=== PATIENT | female | born 1995 | race African-American/Black ===

== ENCOUNTER 2020-06-22 14:27 | Outpatient (CLI) | payer OTHER, SELFPAY ==
--- NOTE | ~2020-06-22 | US_ITS ---
EXAMINATION: US OB follow up DATE: 06/22/2020 15:16 INDICATION: Amenorrhea. Dating of with unknown last menstrual period. TECHNIQUE: Real-time ultrasound of the pelvis was performed. The interpreting radiologist was not pre sent for the study. COMPARISON: None. FINDINGS: The uterus measures 11.2 x 1.9 x 10.5 cm. There is a single living fetus in transverse lie with head to maternal left. The placenta is anterior. 2.5 x 0.7 x 2.1 cm hypoechoic subchorionic hematoma choco g the right superior margin of the placenta. heart rate is 157 beats per minute (bpm). The amni otic fluid volume is subjectively normal. The left ovary measures 2.9 x 1.9 x 1.7 cm and contains a 1 .5 cm anechoic cyst/follicle. The right ovary is not visualized. The following biometric data were obtained: BPD: 2.8 cm -> 15 weeks 0 days Head circumference: 10.7 cm -> 15 weeks 1 days Abdominal circumference: 8.7 cm -> 15 weeks 0 days Femur length: 1.4 cm -> 14 weeks 2 days These measurements are concordant. Head circumference to abdominal circumference ratio: 1.23 (normal range 1.06-1.38). Estimated weight: 103 g (+/-) 15 g. or 4 oz. (+/-) 1 oz. IMPRESSION: 1. Single living fetus in transverse lie with heart rate of 157 bpm. 2. Gestational age by ultrasound of 14 weeks 6 day(s) +/- 7 day(s) with ultrasound estimated date of delivery (PARI) of 12/15/2020. Please correlate with clinical information or earlier ultrasounds for mo st accurate PARI. 3. Small subchorionic hematoma. Reviewed, dictated and finalized at location A. IMPRESSION: 1. Single living fetus in transverse lie with heart rate of 157 bpm. 2. Gestational age by ultrasound of 14 weeks 6 day(s) +/- 7 day(s) with ultraso und estimated date of delivery (PARI) of 12/15/2020. Please correlate with clinic al information or earlier ultrasounds for most accurate PARI. 3. Small subchorionic hematoma.
== END 2020-06-22 14:28 | disposition home or self-care (01) ==
LOC: ANHIMG 14:35
PROVIDERS: Visit Provider Student in an Organized Health Care Education/Training Program
DX: Z34.92 Encounter for supervision of normal pregnancy, unspecified, second trimester (principal); Z3A.14 14 weeks gestation of pregnancy
CPT/HCPCS: 76816

== ENCOUNTER 2020-07-06 11:21 | Outpatient (CLI) | payer OTHER, SELFPAY ==
[2020-07-06 11:45] LABS: Basophils Percent Auto 0.4 % (0.2-1.2); Eosinophils Absolute Auto 0.1 K/mm3 (0-0.3); Eosinophils Percent Auto 1.4 % (0-4.4); Hematocrit 34.6 % (37.0-47.0); Hemoglobin 11.3 g/dL (12.0-15.0); Immature Granulocyte Absolute 0.09 K/mm3 (0.00-0.031); Immature Granulocyte Percent A 0.9 % (0-0.5); Lymphocytes Absolute Auto 1.62 K/mm3 (0.9-3.2); Lymphocytes Percent Auto 16.9 % (18.3-44.2); Mean Corpuscular HGB Conc 32.7 g/dl (32-36); Mean Corpuscular Hemoglobin 28.8 pg (26-34); Mean Platelet Volume 10.5 fl (7.4-10.4); Monocytes Absolute Auto 0.7 K/mm3 (0.1-0.6); Monocytes Percent Auto 7.5 % (2.6-8.5); Neutrophils Percent Auto 72.9 % (45.5-73.1); Platelet Count Result 225 k/mm3 (150-375); Red Blood Count 3.93 M/mm3 (4.2-5.4); Red Cell Distribution Width 11.8 % (11.5-14.5); White Blood Count 9.6 K/mm3 (4.5-10.0)
[2020-07-06 11:51] LABS: Add Urine Microscopic? YES; Appearance Urine Clear (Clear); Bilirubin Urine Negative (Negative); Blood Urine Negative (Negative); Color Urine Yellow (Yellow); Glucose Urine UA 3+ mg/dL (Negative); Ketones Urine Negative (Negative); Leukocyte Esterase Ur Negative LEU/UL (NEGATIVE); Mucus Urine Few /lpf; Nitrate Urine Negative (Negative); Protein Urine 1+ mg/dL (Negative); RBC Urine 0-2 /hpf (0-2); Squamous Epithelial Cell Urine Occasional /hpf (Few); Transitional Epi Cells Urine Rare /hpf (None Seen); WBC Urine 0-3 /hpf (0-3)
[2020-07-06 12:00] LABS: Specific Grav Ur 1.032 (1.001-1.035)
[2020-07-06 12:38] LABS: HIV 1/2 Ab P24 Ag Result Negative (Negative)
[2020-07-06 12:46] LABS: Vitamin D 25 Hydroxy 45.8 ng/mL
[2020-07-06 13:00] LABS: Hepatitis B Surface Antigen Negative (Negative); Rubella IgG Antibody 77.4 IU/ML
[2020-07-06 13:16] LABS: Hepatitis C Virus Antibody Negative (Negative)
[2020-07-07 11:20] LABS: Rapid Plasma Reagin Non-Reactive (NonReactive)
[2020-07-11 14:05] LABS: Hematocrit 34.4 % (35.0-45.0); Hemoglobin 11.3 g/dL (11.7-15.5); MCH 28.7 pg (27.0-33.0); MCV 87.3 FL (80.0-100.0); RDW 12.2 % (11.0-15.0); Red Blood Cell Count 3.94 Mill/uL (3.80-5.10)
== END 2020-07-06 11:22 | disposition home or self-care (01) ==
PROVIDERS: PCP Student in an Organized Health Care Education/Training Program; Visit Provider Student in an Organized Health Care Education/Training Program
DX: Z34.90 Encounter for supervision of normal pregnancy, unspecified, unspecified trimester (principal)
CPT/HCPCS: 36415; 81001; 82306; 83021; 84443; 85025; 86592; 86703; 86762; 86787; 86803; 86850; 86900; 86901; 87086; 87088; 87340; G0432

== ENCOUNTER 2020-07-20 14:56 | Outpatient (CLI) | payer OTHER, SELFPAY ==
[2020-07-22 18:58] LABS: Amphetamines negative; Barbiturates negative; Benzodiazepines negative; Cocaine Metabolites negative; Marijuana Metabolites POSITIVE; PCP negative
== END 2020-07-20 14:57 | disposition home or self-care (01) ==
PROVIDERS: PCP Student in an Organized Health Care Education/Training Program; Visit Provider Student in an Organized Health Care Education/Training Program
DX: O99.320 Drug use complicating pregnancy, unspecified trimester (principal); Z3A.00 Weeks of gestation of pregnancy not specified
CPT/HCPCS: 80307

== ENCOUNTER 2020-09-01 11:49 | Outpatient (CLI) | payer OTHER, SELFPAY ==
[2020-09-01 13:29] LABS: Basophils Percent Auto 0.4 % (0.2-1.2); Eosinophils Absolute Auto 0.1 K/mm3 (0-0.3); Eosinophils Percent Auto 0.7 % (0-4.4); Hematocrit 32.1 % (37.0-47.0); Hemoglobin 10.3 g/dL (12.0-15.0); Immature Granulocyte Absolute 0.13 K/mm3 (0.00-0.031); Immature Granulocyte Percent A 1.3 % (0-0.5); Lymphocytes Absolute Auto 1.56 K/mm3 (0.9-3.2); Lymphocytes Percent Auto 16.2 % (18.3-44.2); Mean Corpuscular HGB Conc 32.1 g/dl (32-36); Mean Corpuscular Hemoglobin 27.8 pg (26-34); Mean Corpuscular Volume 86.8 fl (80-100); Mean Platelet Volume 10.6 fl (7.4-10.4); Monocytes Absolute Auto 0.8 K/mm3 (0.1-0.6); Monocytes Percent Auto 8.7 % (2.6-8.5); Neutrophils Percent Auto 72.7 % (45.5-73.1); Platelet Count Result 228 k/mm3 (150-375); Red Cell Distribution Width 12.4 % (11.5-14.5); White Blood Count 9.6 K/mm3 (4.5-10.0)
[2020-09-01 13:41] LABS: Glucose 1 Hour PP 50gm Dose 120 mg/dL
== END 2020-09-01 11:50 | disposition home or self-care (01) ==
PROVIDERS: PCP Student in an Organized Health Care Education/Training Program; Visit Provider Student in an Organized Health Care Education/Training Program
DX: Z34.82 Encounter for supervision of other normal pregnancy, second trimester (principal); Z3A.00 Weeks of gestation of pregnancy not specified
CPT/HCPCS: 36415; 82947; 85025

== ENCOUNTER 2020-10-26 10:32 | Outpatient (CLI) | payer OTHER, SELFPAY ==
[2020-10-26 11:07] LABS: Basophils Percent Auto 0.4 % (0.2-1.2); Eosinophils Absolute Auto 0.1 K/mm3 (0-0.3); Eosinophils Percent Auto 0.8 % (0-4.4); Hematocrit 36.4 % (37.0-47.0); Hemoglobin 11.3 g/dL (12.0-15.0); Immature Granulocyte Absolute 0.11 K/mm3 (0.00-0.031); Immature Granulocyte Percent A 1.1 % (0-0.5); Lymphocytes Absolute Auto 1.48 K/mm3 (0.9-3.2); Lymphocytes Percent Auto 14.6 % (18.3-44.2); Mean Corpuscular Hemoglobin 26.5 pg (26-34); Mean Corpuscular Volume 85.4 fl (80-100); Mean Platelet Volume 10.9 fl (7.4-10.4); Monocytes Absolute Auto 0.8 K/mm3 (0.1-0.6); Monocytes Percent Auto 8.3 % (2.6-8.5); Neutrophils Absolute Auto 7.6 K/mm3 (1.3-6.7); Neutrophils Percent Auto 74.8 % (45.5-73.1); Platelet Count Result 225 k/mm3 (150-375); Red Blood Count 4.26 M/mm3 (4.2-5.4); Red Cell Distribution Width 12.7 % (11.5-14.5); White Blood Count 10.1 K/mm3 (4.5-10.0)
[2020-10-26 11:59] LABS: HIV 1/2 Ab P24 Ag Result Negative (Negative)
[2020-10-27 08:50] LABS: Rapid Plasma Reagin Non-Reactive (NonReactive)
== END 2020-10-26 10:33 | disposition home or self-care (01) ==
PROVIDERS: PCP Student in an Organized Health Care Education/Training Program; Visit Provider Student in an Organized Health Care Education/Training Program
DX: Z34.83 Encounter for supervision of other normal pregnancy, third trimester (principal)
CPT/HCPCS: 36415; 85025; 86592; 86703; G0432

== ENCOUNTER 2020-12-05 12:09 | Outpatient (CLI) | payer OTHER, SELFPAY ==
[2020-12-05] VITALS (9 sets, daily range): BP systolic 111–123; BP diastolic 61–74; PULSE 75–97
[2020-12-05 12:36] LABS: Basophils Percent Auto 0.2 % (0.2-1.2); Eosinophils Absolute Auto 0.1 K/mm3 (0-0.3); Eosinophils Percent Auto 0.8 % (0-4.4); Hematocrit 39.9 % (37.0-47.0); Hemoglobin 12.5 g/dL (12.0-15.0); Immature Granulocyte Absolute 0.07 K/mm3 (0.00-0.031); Immature Granulocyte Percent A 0.8 % (0-0.5); Lymphocytes Absolute Auto 1.71 K/mm3 (0.9-3.2); Lymphocytes Percent Auto 19.6 % (18.3-44.2); Mean Corpuscular HGB Conc 31.3 g/dl (32-36); Mean Corpuscular Hemoglobin 26.9 pg (26-34); Mean Corpuscular Volume 85.8 fl (80-100); Mean Platelet Volume 11.3 fl (7.4-10.4); Monocytes Absolute Auto 0.8 K/mm3 (0.1-0.6); Monocytes Percent Auto 8.7 % (2.6-8.5); Neutrophils Absolute Auto 6.1 K/mm3 (1.3-6.7); Neutrophils Percent Auto 69.9 % (45.5-73.1); Platelet Count Result 212 k/mm3 (150-375); Red Blood Count 4.65 M/mm3 (4.2-5.4); Red Cell Distribution Width 13.9 % (11.5-14.5); White Blood Count 8.7 K/mm3 (4.5-10.0)
[2020-12-05 12:43] LABS: Creatinine Urine 70.2 mg/dL; Total Protein Urine Random 10 mg/dL; Ur Ttl Prot Creatinine Ratio 0.14 mg/mg (0-0.20)
[2020-12-05 12:44] LABS: Add Urine Microscopic? YES; Appearance Urine Cloudy (Clear); Bacteria Urine 2+ /hpf; Bilirubin Urine Negative (Negative); Blood Urine Negative (Negative); Color Urine Yellow (Yellow); Glucose Urine UA 1+ mg/dL (Negative); Ketones Urine Negative (Negative); Leukocyte Esterase Ur Negative LEU/UL (NEGATIVE); Mucus Urine Rare /lpf; Nitrate Urine Negative (Negative); Protein Urine 1+ mg/dL (Negative); RBC Urine 0-2 /hpf (0-2); Specific Grav Ur 1.014 (1.001-1.035); Squamous Epithelial Cell Urine Many /hpf (Few); Urobilinogen Urine Negative mg/dL (<2.0); WBC Urine 0-3 /hpf (0-3)
[2020-12-05 12:47] LABS: Alanine Aminotransferase 10 U/L (4-35); Albumin Level 3.6 g/dL (3.5-5.1); Alkaline Phosphatase 184 U/L (38-126); Anion Gap 8 mmol/L (8-16); Aspartate Amino Transferase 20 U/L (14-36); Bilirubin,Total 0.3 mg/dL (0.2-1.3); Blood Urea Nitrogen 7 mg/dL (7-17); Calcium 8.8 mg/dL (8.4-10.2); Carbon Dioxide 19 mmol/L (22-30); Chloride 108 mmol/L (98-107); Estimated Glomerular Filt Rate > 60; Glucose 96 mg/dL (65-105); Potassium 4.1 mmol/L (3.4-5.0); Sodium 135 mmol/L (137-145); Uric Acid 4.5 mg/dL (2.5-7.5)
--- NOTE | 2020-12-05 12:52 | PC.NURSE ---
1248- Spoke with Dr. Javed, reviewed BP's, labs, reactive NST. Orders to keep patient and continue to monitor BP's.
--- NOTE | 2020-12-05 13:58 | PC.NURSE ---
1345- Spoke with Dr. Javed, reviewed BP's. Will come down to see patient shortly.
--- NOTE | 2020-12-05 14:23 | PC.NURSE ---
1420- Dr. Javed at bedside discussing plan on care with patient. Orders to discharge to home. Induction scheduled for Friday12/08/20 at 0630.
== END 2020-12-05 14:23 ==
LOC: ANHOBOP 12:12 → ANHOBPP 12:15
PROVIDERS: Visit Provider Student in an Organized Health Care Education/Training Program
DX: O13.3 Gestational [pregnancy-induced] hypertension without significant proteinuria, third trimester (principal); Z3A.38 38 weeks gestation of pregnancy
CPT/HCPCS: 36415; 59025; 80053; 81001; 82570; 84156; 84550; 85025; 87086; 99199

== ENCOUNTER 2020-12-08 06:44 | Inpatient (IN) | payer OTHER, SELFPAY ==
[2020-12-08] VITALS (61 sets, daily range): BP systolic 79–137; BP diastolic 44–92; PULSE 66–128; RESP 18; TEMP 36.7–37.9; O2SAT 97–100
[2020-12-08] MEDS: LACTATED RINGERS 1,000 ML 125 ML IV CONT ×2 (07:32→09:21)
[2020-12-08] MEDS: OXYTOCIN 30 UNITS/NS 500 ML 30 UNITS/500 ML BAG IV CONT (07:32)
[2020-12-08 07:40] LABS: Basophils Percent Auto 0.3 % (0.2-1.2); Eosinophils Absolute Auto 0.1 K/mm3 (0-0.3); Eosinophils Percent Auto 0.8 % (0-4.4); Hematocrit 36.1 % (37.0-47.0); Hemoglobin 11.6 g/dL (12.0-15.0); Immature Granulocyte Absolute 0.06 K/mm3 (0.00-0.031); Immature Granulocyte Percent A 0.6 % (0-0.5); Lymphocytes Absolute Auto 2.27 K/mm3 (0.9-3.2); Lymphocytes Percent Auto 24.5 % (18.3-44.2); Mean Corpuscular HGB Conc 32.1 g/dl (32-36); Mean Corpuscular Hemoglobin 27.3 pg (26-34); Mean Corpuscular Volume 84.9 fl (80-100); Monocytes Absolute Auto 0.9 K/mm3 (0.1-0.6); Monocytes Percent Auto 9.7 % (2.6-8.5); Neutrophils Percent Auto 64.1 % (45.5-73.1); Platelet Count Result 219 k/mm3 (150-375); Red Blood Count 4.25 M/mm3 (4.2-5.4); Red Cell Distribution Width 13.9 % (11.5-14.5); White Blood Count 9.3 K/mm3 (4.5-10.0)
--- NOTE | 2020-12-08 07:51 | LDADM ---
This patient, Guillermo Varela, was admitted to Labor/Delivery/Recovery 109 on 12/08/20 at 06:44. Plans for labor, pain management and were discussed with patient. Patient/family oriented to hospital policies and general routines including ID bracelet, bed and alarms, visiting hours, pain management, procedures, bathroom and other care routines, personal items, smoking policy, room service/diet and guest tray routines, security routines, and visiting hours. Patient/Family are encouraged to report perceived risks to care and to ask questions if they do not understand what they are told or what they should do. See OBIX for further documentation.
--- NOTE | 2020-12-08 08:22 | PM.IMHP ---
H&P: HPI History of Present Illness Date/Time: 12/08/20 08:22 Patient is a 25-year-old with last menstrual period uncertain in February 2020. Patient is currently 39 weeks gestation with an PARI 12/15/20. She is dated by an ultrasound on 06/22/20 at 14 weeks gestation. Patient presents to L&D for scheduled elective induction of labor at term. Patient reports feeling well. Patient denies any contractions, leakage of fluid, or vaginal bleeding. Reports good movement. Chief Complaint: Induction of labor Review of Systems Review of Systems: All systems reviewed & are unremarkable except as noted in HPI and below Constitutional: Constitutional: Reports as per HPI, Reports no additional constitutional complaints, Denies chills, Denies fever(s), Denies headache(s) and Denies night sweats Eyes: Eyes: Reports as per HPI and Reports no additional eye complaints ENT: Reports system reviewed and no additional complaints, except as documented, Reports as per HPI, Reports Normal hearing present and Denies headache(s) Cardiovascular: Cardiovascular: Reports as per HPI, Reports no additional cardiovascular complaints, Denies chest pain and Denies dyspnea Respiratory: Respiratory: Reports as per HPI, Reports no additional respiratory complaints, Denies cough and Denies dyspnea Gastrointestinal: Gastrointestinal: Reports as per HPI, Reports no additional gastrointestinal complaints, Denies abdominal pain, Denies change in bowel habits, Denies change in stool character, Denies nausea and Denies vomiting Genitourinary: Genitourinary: Reports no additional female genitourinary complaints, Reports as per HPI, Denies abnormal vaginal bleeding, Denies genital lesions, Denies hot flashes, Denies dyspareunia, Denies pelvic pain, Denies sexual dysfunction, Denies urinary incontinence, Denies vaginal discharge, Denies vaginal dryness and Denies vaginal odor Musculoskeletal: Musculoskeletal: Reports no additional musculoskeletal complaints and Reports as per HPI Integumentary/Breasts: Skin/Breast: Reports system reviewed and no additional complaints, except as docu, Reports as per HPI, Denies breast pain and Denies nipple discharge Neurologic: Reports system reviewed and no additional complaints, except as documented, Reports as per HPI, Reports Normal hearing present and Denies headache(s) Psychiatric: Psychiatric: Reports no additional psychiatric complaints, Reports as per HPI, Denies anxiety and Denies depression Endocrine: Endocrine: Reports no additional endocrine complaints and Reports as per HPI Hematologic/Lymphatic: Hematologic/Lymphatic: Reports no additional hematologic/lymphatic complaints and Reports as per HPI Allergic/Immunologic: Allergic/Immunologic: Reports no additional allergic/immunologic complaints and Reports as per HPI PMFSH Past Medical History Medical History (Updated 12/08/20 @ 08:34 by Gunjan Javed MD) History of miscarriage Vaginal delivery Surgical History Surgical History (Updated 12/08/20 @ 08:32 by Gunjan Javed MD) History of incision and drainage marsupialization of Bartholin's gland Family History Family History Grandparent Family history of malignant neoplasm of breast in first degree relative Heart failure Social History Social History Smoking status: Never smoker Second hand tobacco smoke exposure: No Alcohol intake: never Substance use: current Substance use type: marijuana Spiritual care concerns: No Meds Home Medications and Allergies Home Medications Medication Instructions Recorded Confirmed Type prenat.vits,anali,cyl-[id number]-npdox 1 tablet PO DAILY 06/15/20 12/08/20 History Allergies Allergy/AdvReac Type Severity Reaction Status Date / Time No Known Allergies Allergy Verified 12/05/20 11:19 Vital Signs Vital Signs - 24 hr 12/08/20 07:15 12/08/20 07
--- NOTE | 2020-12-08 08:35 | WPDHPUPDATE1 ---
History and Physical Update Update Date/Time: 12/08/20 08:35 History and Physical has been reviewed, including an updated exam of the patient. There are NO changes in the patient's condition. Risks, benefits, and alternatives have been discussed and questions answered. Patient agrees to proceed with procedure.
--- NOTE | 2020-12-08 09:25 | WPDANESEPPF ---
Anes - Initial Pre Proc Eval Date/Time: 12/08/20 09:25 Surgeon: Gunjan Javed MD Pre Op Diagnosis: Induction of Labor Patient Data Age: 25 Gender: F Height: Weight: Last Vital Signs Temp 37.0 C 12/08/20 07:30 Pulse 88 12/08/20 09:24 BP 123/61 12/08/20 09:24 Pulse Ox 99 12/08/20 09:20 Allergies Allergy/AdvReac Type Severity Reaction Status Date / Time No Known Allergies Allergy Verified 12/05/20 11:19 Home Medications Medication Instructions Recorded Confirmed Type prenat.vits,anali,kan-chuc-lkrua 1 tablet PO DAILY 06/15/20 12/08/20 History Laboratory Tests 12/08/20 12/08/20 12/08/20 07:12 07:12 07:12 WBC 9.3 K/mm3 K/mm3 (4.5-10.0) RBC 4.25 M/mm3 M/mm3 (4.2-5.4) Hgb 11.6 g/dL L g/dL (12.0-15.0) Hct 36.1 % L % (37.0-47.0) MCV 84.9 fl fl (80-100) MCH 27.3 pg pg (26-34) MCHC 32.1 g/dl g/dl (32-36) RDW 13.9 % % (11.5-14.5) Plt Count 219 k/mm3 k/mm3 (150-375) MPV 12.0 fl H fl (7.4-10.4) Immature Gran % (Auto) 0.6 % H % (0-0.5) Neut % (Auto) 64.1 % % (45.5-73.1) Lymph % (Auto) 24.5 % % (18.3-44.2) [place]go % (Auto) 9.7 % H % (2.6-8.5) Eos % (Auto) 0.8 % % (0-4.4) Baso % (Auto) 0.3 % % (0.2-1.2) Lymph # (Auto) 2.27 K/mm3 K/mm3 (0.9-3.2) [place]go # (Auto) 0.9 K/mm3 H K/mm3 (0.1-0.6) Eos # (Auto) 0.1 K/mm3 K/mm3 (0-0.3) Baso # (Auto) 0.0 K/mm3 K/mm3 (0.0-0.1) Abs Immat Gran (auto) 0.06 K/mm3 H K/mm3 (0.00-0.031) Absolute Neuts (auto) 6.0 K/mm3 K/mm3 (1.3-6.7) Absolute Nucleated RBC 0.0 K/mm3 K/mm3 (0.0-0.012) Nucleated RBC % 0.0 % % (0.0-0.2) RPR Pending Blood Type O Positive Antibody Screen Negative Patient hx anesthesia problems: none Family hx anesthesia problems: none PMFSH Past Medical History Medical History History of miscarriage Vaginal delivery Surgical History Surgical History History of incision and drainage marsupialization of Bartholin's gland Family History Family History Grandparent Family history of malignant neoplasm of breast in first degree relative Heart failure Social History Social History Smoking status: Never smoker Second hand tobacco smoke exposure: No Alcohol intake: never Substance use: current Substance use type: marijuana Spiritual care concerns: No Anes - Eval Final PreProcedure Day of Procedure 12/08/20 09:25 Patient weight: overweight Heart: regular rate and rhythm Lungs: clear to auscultation Airway: Mallampati scale class II Neurological: alert and oriented Last oral intake: >/= 8 hours ASA classification: II Emergent: no Anesthetic plan: proceed Anesthesia type and monitoring: regional epidural and standard monitoring Informed Consent: The patient's anesthetic plan and its attendant risks and benefits were discussed with the patient/family/POA. Questions were solicited and answers provided to the satisfaction of the patient/family/POA.
[2020-12-08 09:32] LABS: Rapid Plasma Reagin Non-Reactive (NonReactive)
[2020-12-08 10:27] LABS: Amphetamine Screen Urine Negative (Negative); Barbiturate Screen Urine Negative (Negative); Benzodiazepines Screen Urine Negative (Negative); Cannabinoid Screen Urine Negative (Negative); Cocaine Screen Urine Negative (Negative); Methadone Screen Urine Negative (Negative); Opiate Screen Urine Negative (Negative); Phencyclidine Screen Urine Negative (Negative)
[2020-12-08] MEDS: OXYTOCIN 30 UNITS/NS 500 ML 30 UNITS/500 ML BAG 125 UNITS IV CONT (16:12)
--- NOTE | 2020-12-08 17:19 | PM.OBPRVD ---
OB - Delivery Note Procedure Delivery date: 12/08/20 Procedure: The patient is a 25-year-old now who presented to Labor and Delivery on the morning of 12/08/2020 at 39 weeks gestation for a scheduled elective induction of labor at term. Patient was admitted to Labor and Delivery. Initial cervical exam was approximately 3 cm dilated. Induction of labor was begun with Pitocin. Pitocin was slowly titrated. Artificial rupture membranes was performed at 8 o'clock a.m. Clear amniotic fluid was noted. Cervical exam at that time was approximately 3/50/-2. The Pitocin was continuously titrated. Patient became uncomfortable and requested an epidural for pain management which was placed without difficulty. Patient continued to make cervical change and was noted to be fully dilated at 3:01 p.m. Epidural had become less effective over time and patient was uncomfortable. She was encouraged to push. She was prepped and draped for delivery. At 3:25 p.m., patient delivered infant head atraumatically without difficulty in DEMETROI presentation. Occiput restituted to maternal right side. With subsequent push, the 's neck, shoulders, and rest of body were also delivered without difficulty. Terminal meconium was noted. The 's nose and mouth were suctioned with bulb suction. The infant was crying spontaneously and was placed on maternal abdomen where care was assumed by awaiting nursing staff. The spontaneously voided. Delayed cord clamping was performed for 60 seconds. The cord was clamped and cut. A segment of cord was collected for cord gases. Cord blood was also collected. The placenta was then delivered spontaneously and intact. Uterine fundus was noted to be firm with massage. On inspection, no lacerations were noted and perineum was intact. Estimated blood loss for entire delivery was 100 cc. The was a live born female infant, apgars 8 and 9, weighing 8 lb 7 oz. Both mother and baby doing well at end of delivery. events: Labor Induction Induction method: per pitocin protocol Delivery augmentation: rupture of membranes Delivery monitor: external FHT and external uterine Route of delivery: Laceration Description: None Specimen: No Quantitative Blood Loss (ml): 100 Anesthesia type: Epidural Disposition: floor Complications: No immediate complications Baby Date of : 12/08/20 Time of : 15:25 Weeks of gestation at delivery: 39 gender: Female Weight (pounds): 8 Weight (ounces): 7 presentation: vertex position: Right Occiput Anterior Placenta delivery description: Spontaneous cord vessel description: 3 Vessels and Delayed Cord Clamping (x60 seconds) score one minute: 8 score five minutes: 9
--- NOTE | 2020-12-08 17:45 | OBPPTRN ---
Patient transferred to post room # 284 via wheelchair. Support person present. Oriented to unit, room, information board, rooming in, admission packet and security measures. Patient verbalizes understanding.
[2020-12-09 05:47] LABS: Hematocrit 35.5 % (37.0-47.0); Hemoglobin 11.1 g/dL (12.0-15.0)
[2020-12-09 08:00] VITALS: BP 101/57; PULSE 81; RESP 16; TEMP 36.9; O2SAT 100
--- NOTE | 2020-12-09 08:07 | P.PNOB_ITS ---
OB - PN: Subj Subjective Date/time seen: 12/09/20 08:07 She is doing well. Baby is . No complaints. Patient comments: pain well controlled, tolerating diet and other (Decreasing lochia.) [place] baby status: doing well and nursing well OB - PN: Obj Data Labs CBC & Chem 7: 12/09/20 03:36 Labs: Laboratory Results - last 24 hr 12/08/20 12/08/20 12/08/20 07:12 07:12 07:12 Hgb Hct Urine Opiates Screen Negative Urine Methadone Screen Negative Ur Barbiturates Screen Negative Ur Phencyclidine Scrn Negative Ur Amphetamine Screen Negative U Benzodiazepines Scrn Negative Urine Cocaine Screen Negative U Cannabinoids Screen Negative RPR Non-reactive Blood Type O Positive Antibody Screen Negative 12/09/20 03:36 Hgb 11.1 L Hct 35.5 L Urine Opiates Screen Urine Methadone Screen Ur Barbiturates Screen Ur Phencyclidine Scrn Ur Amphetamine Screen U Benzodiazepines Scrn Urine Cocaine Screen U Cannabinoids Screen RPR Blood Type Antibody Screen OB - PN A/P Plan day: 1 Plan: routine care Comments: Patient doing well. She request discharge today. Will discharge home today. Discussed discharge precautions. Time Spent With Patient Time: Total time spent is greater than 50% in coordination of care (as long lynch) at patient's floor/unit and/or counseling patient: Exam Const: General: comfortable Eyes: General: appearance normal, both eyes and all related structures Resp: Effort & Inspection: normal respiratory effort GI: Inspection: normal to inspection Other: soft nontender, fundus -3umb, firm Psych: Affect: normal affect Other: Abd: fundus firm below umbilicus, nontender Perineum: healing Ext: nontender
--- NOTE | 2020-12-09 08:11 | P.DS_ITS ---
DS: Admitting Diagnosis Admitting Diagnosis Admitting Diagnosis: Medical induction of labor DS: Discharge Diagnosis Discharge Diagnosis (1) Delivery normal: Code(s): O80 - Encounter for full-term uncomplicated delivery Status: Acute OB - DS: Summary OB Procedures : Ultrasound OB Procedures Intrapartum: Spontaneous Vag Delivery OB Procedures: : None Peripartum Data Delivery Method: Natural Vaginal complications: none Status at Discharge Functional status at discharge: independent ambulation Time Spent with Patient Time attestation: Total time spent providing and/or coordinating discharge services: Exam Const: General: cooperative and comfortable Eyes: General: appearance normal, both eyes and all related structures Resp: Effort & Inspection: normal respiratory effort GI: Inspection: normal to inspection Other: fundus firm nontender -3umb Extrem: General: normal to inspection Other: nontender Psych: Mental Status: mental status grossly normal DS: Data Data Completed and Pending Labs on day of discharge: Labs from last 24 hours 12/09/20 12/08/20 12/08/20 03:36 07:12 07:12 Hgb 11.1 L Hct 35.5 L Urine Opiates Screen Negative Urine Methadone Screen Negative Ur Barbiturates Screen Negative Ur Phencyclidine Scrn Negative Ur Amphetamine Screen Negative U Benzodiazepines Scrn Negative Urine Cocaine Screen Negative U Cannabinoids Screen Negative RPR Blood Type O Positive Antibody Screen Negative 12/08/20 07:12 Hgb Hct Urine Opiates Screen Urine Methadone Screen Ur Barbiturates Screen Ur Phencyclidine Scrn Ur Amphetamine Screen U Benzodiazepines Scrn Urine Cocaine Screen U Cannabinoids Screen RPR Non-reactive Blood Type Antibody Screen Discharge Plan Discharge Attending physician on discharge: Gunjan Javed Consulting providers: Saurabh Alicia Discharging Clinician: Raymon Garcia Anticipated Discharge Date/Time: 12/09/20 16:00 Patient Disposition: Home, Self-Care Activity: may shower, pelvic rest and other - see discharge instructions Diet: regular Discharge Instructions: Pelvic rest for four to six weeks. No heavy lifting. Call for temperature > 100.4, saturating more than a pad an hour, leg pain, redness. May take over the counter Ibuprofen or Tylenol for pain. Patient Instructions: Antibiotic Form Stand Alone Forms: General Discharge Information Follow-up/Referrals: Gunjan Javed MD [Physician] - Call for Appointment (4-6 week appointment) Discharge Medications: Continued prenat.vits,anali,gpx-bxbh-dtfym Tablet 1 tablet PO DAILY RF: 0 Date of admission: 12/08/20 06:44 Primary Care Provider: PHYSICIAN,[employer] SUPERVISOR Admitting Provider: Gunjan Javed Attending physician on admission: Gunjan Javed Condition: Stable
--- NOTE | 2020-12-09 08:58 | WPDANLDPN2 ---
Anes-Prog Note L&D Date/Time: 12/09/20 08:58 Comfortable throughout: labor and delivery Neuraxial method: epidural Epidural/Spinal procedure site: clean & non-tender Neuro status: Neuro function grossly intact. Cardiovascular status: normal Respiratory status: normal Airway patency: baseline Mental status: baseline Post-Op hydration status: normal Vital Signs: Last Vital Signs Temp 36.9 C 12/09/20 08:00 Pulse 81 12/09/20 08:00 Resp 16 12/09/20 08:00 BP 101/57 L 12/09/20 08:00 Pulse Ox 100 12/09/20 08:00 Pain score (VAS): 0 I/O: Intake & Output 12/08/20 12/09/20 12/09/20 23:59 07:59 15:59 Intake Total 1500 Output Total 108 Balance 1392 Post-procedural complaints: none Patient feedback: Patient satisfied with anesthetic care.
--- NOTE | 2020-12-09 09:51 | PC.NURSE ---
Patient was given the opportunity to view the discharge video Mother & Baby Care, The First Two Weeks and to ask questions. Patient declined viewing the video and has been given the mother/baby guide for home reference.
[2020-12-09] MEDS: TETANUS,DIPHTHERIA,AC PERTUSSIS ADULT (0.5 ML) BOOSTRIX IM (09:57)
[2020-12-09] MEDS: MULTIVIT/MIN/PREN/FOL AC/IRON TABLET 1 TAB PO (09:58)
[2020-12-09 12:06] VITALS: PULSE 79; RESP 16; O2SAT 100
[2020-12-09 17:05] VITALS: BP 120/68; PULSE 80; RESP 16; O2SAT 100
[2020-12-11 10:27] VITALS: BP 113/70; PULSE 100; RESP 20; TEMP 37.1; O2SAT 100
== END 2020-12-09 17:33 | disposition home or self-care (01) | DRG 560 ==
LOC: ANHOB2 12-09 08:19 → ANHLDR 12-12 09:29 → ANHOB2 12-12 09:29
PROVIDERS: Admitting Provider Student in an Organized Health Care Education/Training Program; Visit Provider Obstetrics & Gynecology
DX: O80 Encounter for full-term uncomplicated delivery (principal); Z37.0 Single live birth; Z3A.39 39 weeks gestation of pregnancy
CPT/HCPCS: 36415; 80307; 85014; 85018; 85025; 86592; 86850; 86900; 86901; 90715; A9270; J2590; J2795; J7120

== ENCOUNTER 2021-06-13 18:40 | Emergency (ER) | payer OTHER, SELFPAY ==
[2021-06-13 18:46] VITALS: BP 115/75; PULSE 92; RESP 16; TEMP 36.7; O2SAT 100
[2021-06-13 18:48] VITALS: BP 115/75; PULSE 92; RESP 16; TEMP 36.7; O2SAT 100
--- NOTE | 2021-06-13 18:52 | ED.GENADULT ---
HPI - General Adult General Chief complaint: Nausea/Vomiting/Diarrhea Stated complaint: VOMITING/DIARRHEA Source: patient Mode of arrival: ambulatory Limitations: no limitations History of Present Illness HPI narrative: Patient is a 25-year-old -[place] female who presents to the us care via POV for evaluation of nausea, vomiting, and diarrhea that has been present for approximately 1 week. She is accompanied by her mother. Additionally, she reports vomiting, nausea, and diarrhea have been intermittent. She states she has vomited once which contained yellow liquid and undigested food. She is having approximately 3 brown/yellow watery stools per day. Denies taking OTC meds for symptoms. Nothing improves or worsen symptoms. She states her daughter was ill with similar signs and symptoms approximately 1-1/2 weeks ago. She is fully vaccinated against Covid. Related Data Allergies Allergy/AdvReac Type Severity Reaction Status Date / Time No Known Allergies Allergy Verified 01/12/21 13:29 Review of Systems Review of Systems: Denies past abdominal medical history. Pertinent negatives fever, chills, sweats, malaise, poor p.o. intake, change in appetite, recent weight loss, lymphadenopathy, headache, sore throat, dizziness, LOC, urinary sxs, back/flank pain, extremity paresthesias, blood in stool, abdominal audrey, constipation, belching, bloating, dry mouth, heartburn, jaundice, vomiting blood, and testicular pain. PMFSH Past Medical History Medical History (Updated 06/13/21 @ 19:06 by SUZETTE Mcleod, BC) Delivery normal History of miscarriage Vaginal delivery Surgical History Surgical History (Updated 06/13/21 @ 19:02 by SUZETTE Mcleod, BC) History of incision and drainage marsupialization of Bartholin's gland Family History Family History Grandparent Family history of malignant neoplasm of breast in first degree relative Heart failure Social History Social History Smoking status: Never smoker Second hand tobacco smoke exposure: No Alcohol intake: never Substance use: current Substance use type: marijuana Spiritual care concerns: No Exam Narrative: GENERAL: Well-appearing, well-nourished, and in no acute distress. HEAD: Normocephalic, atraumatic. NECK: Supple. No lymphadenopathy or nuchal rigidity. CHEST: Lung sounds are clear to auscultation in bilateral lung weldon. No respiratory distress. HEART: Regular rate and rhythm. No murmur, gallop, or rub heard. ABDOMEN: Soft, non-tender, non-distended, hyperactive active bowel sounds are present in all quadrants. No guarding. No rebound tenderness. No pulsatile or palpable abdominal mass(es). No CVAT : Bladder non-distended, non-tender EXTREMITIES: Normal range of motion. No edema. SKIN: Warm, dry, no rash. No skin color changes. Excellent turgor. NEURO: No focal deficits. Alert and oriented x3. SPECIAL OBSERVATIONS: Smiling. Laughing. No evidence of discomfort. Course Vital Signs Vital signs: Vital Signs Temperature 98.1 F 06/13/21 18:46 Pulse Rate 92 06/13/21 18:46 Respiratory Rate 16 06/13/21 18:46 Blood Pressure 115/75 06/13/21 18:46 Pulse Oximetry 100 06/13/21 18:46 Temperature 98.1 F 06/13/21 18:48 Pulse Rate 92 06/13/21 18:48 Respiratory Rate 16 06/13/21 18:48 Blood Pressure 115/75 06/13/21 18:48 Pulse Oximetry 100 06/13/21 18:48 Reviewed. Medical Decision Making Differential Diagnosis Differential Diagnosis: Gastroenteritis, IBS, Crohn's disease Medical Records Medical records reviewed: Yes I reviewed the external patient's medical records. Vital Signs Vital Signs: Vital Signs Temperature 98.1 F 06/13/21 18:46 Pulse Rate 92 06/13/21 18:46 Respiratory Rate 16 06/13/21 18:46 Blood Pressure 115/75 06/13/21 18:46 Pulse Oximetry 100 06/13/21 18
== END 2021-06-13 19:16 | disposition home or self-care (01) ==
PROVIDERS: Emergency Provider Nurse Practitioner Family; PCP Student in an Organized Health Care Education/Training Program
DX: R11.2 Nausea with vomiting, unspecified (principal); R19.7 Diarrhea, unspecified
CPT/HCPCS: 99213; G0463

== ENCOUNTER 2021-08-13 10:02 | Emergency (ER) | payer OTHER, SELFPAY ==
[2021-08-13 10:23] VITALS: BP 115/70; PULSE 92; RESP 16; TEMP 36.7; O2SAT 100
--- NOTE | 2021-08-13 10:36 | ED.FEMALEGU ---
HPI - Female Genitourinary General Chief complaint: Urogenital-Female Stated complaint: Female Urogenital Time Seen by Provider: 08/13/21 10:36 Source: patient Mode of arrival: ambulatory Limitations: no limitations History of Present Illness HPI Narrative: Guillermo Varela is a 26 yo female with no PM H who comes to [facility] with complaints of Edilberto tract infection that started yesterday. She states that she is urinating more frequently and has pain at the end of urination. She states she has had urinary tract infections before-no fever, no nausea vomiting or diarrhea, no back pain Related Data Allergies Allergy/AdvReac Type Severity Reaction Status Date / Time No Known Allergies Allergy Verified 06/19/21 09:02 Review of Systems Review of Systems: CONSTITUTIONAL: Denies fever, chills, sweats. EYES: Denies visual changes, redness, discharge. ENT: Denies rhinorrhea, congestion, sore throat, otalgia. CARDIOVASCULAR: Denies chest pain, palpitations, edema. RESPIRATORY: Denies dyspnea, wheezing, cough GASTROINTESTINAL: Denies abdominal pain, nausea, vomiting, diarrhea. GENITOURINARY: Has dysuria, hematuria, abnormal discharge SKIN: Denies rash or itching. NEUROLOGIC: Denies numbness, or focal weakness. PSYCHIATRIC: Denies anxiety or depression. PMFSH Past Medical History Medical History Delivery normal History of miscarriage Vaginal delivery Surgical History Surgical History History of incision and drainage marsupialization of Bartholin's gland Family History Family History Grandparent Family history of malignant neoplasm of breast in first degree relative Heart failure Social History Social History Smoking status: Never smoker Second hand tobacco smoke exposure: No Alcohol intake: never Substance use: current Substance use type: marijuana Spiritual care concerns: No Comments At time of signature, I agree with nursing past medical, surgical, social and family history. There is no relevant family history pertinent to the presenting complaint. Exam Narrative: GENERAL: This is a well-nourished, well-developed patient, in mild distress. HEAD: normocephalic, atraumatic. EYES: PERRL. Sclera clear/white. Vision is grossly intact. EARS: External ears normal, . Hearing grossly intact. NOSE: External nose normal without nasal discharge, nares without redness, no rhinorrhea. THROAT: Mucous membranes moist NECK: Neck supple, CARDIOVASCULAR: Regular rate and rhythm without murmurs, gallops, or rubs. RESPIRATORY: Clear to auscultation. Breath sounds equal bilaterally. No wheezes, rales, or rhonchi. GASTROINTESTINAL: Abdomen soft, no tenderness SKIN: warm, intact with no suspicious lesions or rash, good texture and turgor. NEURO: awake, alert, and oriented to person, place and time. There were no obvious focal neurologic abnormalities. Steady gait EXTREMITIES: Normal range of motion. BACK: Nontender without deformity Course Course Emergency Course: Patient here for urinary frequency and pain when urinating that started yesterday UA shows positive blood 1+ leukocytes Started on cephalexin, discussed pushing fluids and good prevention practices Vital Signs Vital signs: Vital Signs Temperature 98.1 F 08/13/21 10:23 Pulse Rate 92 08/13/21 10:23 Respiratory Rate 16 08/13/21 10:23 Blood Pressure 115/70 08/13/21 10:23 Pulse Oximetry 100 08/13/21 10:23 Temperature 98.1 F 08/13/21 10:23 Pulse Rate 92 08/13/21 10:23 Respiratory Rate 16 08/13/21 10:23 Blood Pressure 115/70 08/13/21 10:23 Pulse Oximetry 100 08/13/21 10:23 MDM - Female Genitourinary Differential Diagnosis Differential diagnosis: Likely urinary tract infection, cystitis and other
== END 2021-08-13 10:48 | disposition home or self-care (01) ==
PROVIDERS: Emergency Provider Nurse Practitioner; PCP Student in an Organized Health Care Education/Training Program
DX: N30.01 Acute cystitis with hematuria (principal)
CPT/HCPCS: 81003; 87077; 87086; 87088; 87186; 99213; G0463

== ENCOUNTER 2023-03-21 19:36 | Emergency (ER) | payer OTHER, SELFPAY ==
--- NOTE | 2023-03-21 19:37 | ED.URI ---
HPI - URI/Sore Throat General Chief Complaint: Upper Respiratory Infection Stated Complaint: ear pain/sore throat Time Seen by Provider: 03/21/23 19:37 Source: patient Mode of arrival: ambulatory Limitations: no limitations History of Present Illness HPI Narrative: Guillermo is a 27-year-old female patient presenting to the clinic today with complaints of ear pain and sore throat times 2-3 days. She reports has had some nasal congestion, chills, and body aches as well. No known fever. No known exposure to anyone with COVID, flu, or strep. MD elicited complaint: sore throat, nasal congestion and other (Ear pain) Related Data Allergies Allergy/AdvReac Type Severity Reaction Status Date / Time No Known Allergies Allergy Verified 03/21/23 19:41 Review of Systems Review of Systems: Pertinent positives per HPI. Patient denies any fever, rash, headache, visual changes, dizziness, cough, shortness of breath, chest pain, palpitations, nausea, vomiting, diarrhea, constipation, abdominal pain, or any urinary issues. PMFSH Past Medical History Medical History Delivery normal History of herpes genitalis History of miscarriage PCOS (polycystic ovarian syndrome) Vaginal delivery Surgical History Surgical History History of incision and drainage marsupialization of Bartholin's gland Family History Family History Grandparent Family history of malignant neoplasm of breast in first degree relative Heart failure Social History Social History Smoking status: Never smoker Second hand tobacco smoke exposure: No Alcohol intake: never Substance use: current Substance use type: marijuana Spiritual care concerns: No Comments At the time of my signature, I reviewed and agree with the nursing past medical, surgical, social, and family history. There is no relevant family history pertinent to the patient complaint. Exam Narrative: General: Well-developed, well nourished, in no apparent distress Head: Normocephalic, atraumatic Eyes: Pupils equally round and reactive to light bilaterally, EOM intact, sclera and conjunctive clear, no discharge, lids normal Ears: TMs intact and clear, ear canals clear, no drainage, grossly hearing normal. Nose: Nares patent, no discharge, no inflammation, no sinus tenderness. Mouth: Oral pharynx red with bilateral tonsil enlargement without lesions or masses, good dentition, MMM. Neck: Supple, trachea midline, enlargement of anterior cervical nodes, no thyroid masses or goiter palpable. Cardio: Regular rate and rhythm, s1 and s2 normal, no murmur appreciated. Resp: Clear to auscultation bilaterally, no rhonchi, rales, wheezing or rubs Course Course Emergency Course: Portions of this record may have been created with voice recognition software. Level of Care: Express Care Visit Vital Signs Vital signs: Vital signs reviewed MDM - URI/Sore Throat MDM Narrative Medical decision making narrative: At the time of visit patient is resting comfortably on exam table. Strep screen was obtained and was positive in the clinic today. Prescription for amoxicillin was sent to the pharmacy and supportive measures were discussed with the patient she voiced understanding discharge instructions and agrees to treatment plan Differential Diagnosis Differential diagnosis: Likely upper respiratory infection, otitis media, sinusitis, viral infection, bronchitis, influenza, pharyngitis and other (COVID) Discharge Plan Discharge Clinical Impression: Acute streptococcal pharyngitis Patient Disposition: Home, Self-Care Condition: Stable Instructions: Antibiotic Form, Strep Throat (ED) Additional Instructions: Strep screen was positive in th
[2023-03-21 19:43] VITALS: BP 104/67; PULSE 108; RESP 16; TEMP 37.7; O2SAT 100
== END 2023-03-21 19:56 | disposition home or self-care (01) ==
PROVIDERS: Emergency Provider Nurse Practitioner Family; PCP Student in an Organized Health Care Education/Training Program
DX: J02.0 Streptococcal pharyngitis (principal)
CPT/HCPCS: 87880; 99213; G0463

== ENCOUNTER 2024-05-11 17:59 | Emergency (ER) | payer OTHER, SELFPAY ==
--- NOTE | 2024-05-11 18:15 | ED.FEMALEGU ---
HPI - Female Genitourinary General Chief complaint: Urogenital-Female Stated complaint: UTI SYMPTOMS Source: patient and RN notes reviewed Mode of arrival: ambulatory Limitations: no limitations History of Present Illness HPI Narrative: Patient is a 28-year-old female who presents to the [facility] with complaints of dysuria starting this morning. Patient also endorses urinary frequency and urgency. She states that her symptoms are similar to those she has experienced in the past with prior UTIs. She denies hematuria, flank pain, pelvic pain. Denies vaginal discharge. Related Data Home Medications Medication Instructions Recorded Confirmed O+ .Route 08/26/23 PMS .Route 08/26/23 ovarian support .Route 08/26/23 Allergies Allergy/AdvReac Type Severity Reaction Status Date / Time No Known Allergies Allergy Verified 08/26/23 08:16 Review of Systems Review of Systems: CONSTITUTIONAL: Denies fever, chills, or sweats. EYES: Denies visual changes, redness, or discharge. ENT: Denies otalgia and sore throat CARDIOVASCULAR: Denies chest pain, palpitations, or edema. RESPIRATORY: Denies cough or dyspnea. GASTROINTESTINAL: Denies abdominal pain, nausea, vomiting, or diarrhea. GENITOURINARY: Reports dysuria, urinary frequency, urinary urgency. SKIN: Denies rash or itching. MUSCULOSKELETAL: Denies back pain, joint pain, or myalgia. NEUROLOGIC: Denies headache, numbness, or weakness. Pertinent positives per HPI. [facility] Past Medical History Medical History Delivery normal History of herpes genitalis History of miscarriage PCOS (polycystic ovarian syndrome) Vaginal delivery Surgical History Surgical History History of incision and drainage marsupialization of Bartholin's gland Family History Family History Grandparent Family history of malignant neoplasm of breast in first degree relative Heart failure Social History Social History Smoking status: Never smoker Second hand tobacco smoke exposure: No Alcohol intake: never Substance use: current Substance use type: marijuana Lack of Transportation: No Lack of Food: Never True Current Housing: I Have Housing Concerned About Future Housing: No Difficulty Paying Gas/Electric Bills: No Difficulty Paying for Meds: No Currently Unemployed: No Difficulty w/ Childcare or Family Care: No Spiritual care concerns: No Comments At the time of my signature, I reviewed and agree with the nursing past medical, surgical, social, and family history. There is no relevant family history pertinent to the patient complaint. Exam Narrative: GENERAL: This is a well-nourished, well-developed patient, in no apparent distress. HEAD: normocephalic, atraumatic. EYES: PERRL. Sclera clear/white. Vision is grossly intact. EARS: External ears normal, auditory canals clear and without drainage, TMs normal without perforation. Hearing grossly intact. NOSE: External nose normal with no obvious nasal discharge, nares without redness, no rhinorrhea. THROAT: Mucous membranes moist, posterior pharynx clear. NECK: Neck supple, non-tender without lymphadenopathy, masses or thyromegaly. CARDIOVASCULAR: Regular rate and rhythm without murmurs, gallops, or rubs. RESPIRATORY: Clear to auscultation. Breath sounds equal bilaterally. No wheezes, rales, or rhonchi. GASTROINTESTINAL: Abdomen soft, non-tender, nondistended. Bowel sounds are active. No hepato-splenomegaly, or palpable masses. No guarding. SKIN: warm, intact with no suspicious lesions or rash, good texture and turgor. NEURO: awake, alert, and oriented to person, place and time. There were no obvious focal neurologic abnormalities. EXTREMITIES: No clubbing, cyanosis, or edema. No joint
[2024-05-11 18:26] VITALS: BP 103/71; PULSE 75; RESP 16; TEMP 36.8; O2SAT 100
[2024-05-11 18:41] LABS: EDUAAPPEAR Cloudy; EDUABILI Negative; EDUABLOOD Negative; EDUACOLOR1 Light/Pale; EDUAGLUCOSE Negative; EDUAKETONE Negative; EDUALEUKO 1+; EDUANITRATE Negative; EDUAPH 8.5; EDUAPROTEIN Trace; EDUASPGRAVITY 1.015
== END 2024-05-11 18:41 | disposition home or self-care (01) ==
PROVIDERS: Emergency Provider Nurse Practitioner
DX: N30.00 Acute cystitis without hematuria (principal); F12.90 Cannabis use, unspecified, uncomplicated; E28.2 Polycystic ovarian syndrome
CPT/HCPCS: 81003; 87077; 87086; 87088; 99213; G0463

== ENCOUNTER 2024-10-19 15:23 | Outpatient (CLI) | payer OTHER, SELFPAY ==
--- NOTE | ~2024-10-19 | US_ITS ---
EXAMINATION: US OB <= 14 weeks fetus DATE: 10/19/2024 15:40 INDICATION: Amenorrhea, unspecified. TECHNIQUE: Real-time transabdominal pelvic ultrasound was performed. COMPARISON: None. FINDINGS: The uterus measures 10.9 x 7.8 x 6.2 cm. There is an intrauterine gestational sac. The crown ru mp length measures 4.1 cm, which correlates with an estimated gestational age of 11 weeks and 0 day(s ) (+/-) 1 week(s) and 0 day(s). heart motion is identified measuring 171 beats per minute (bpm) by M-mode Doppler. There is a small subchorionic hematoma. The ovaries are not visualized. There is no ascites. IMPRESSION: 1. Single living intrauterine gestation with estimated date of delivery of 05/10/2025. 2. Small subchorionic hematoma. Reviewed, dictated and finalized at location A. BULATORY SERVICES REPRESENTATIVE IMPRESSION: 1. Single living intrauterine gestation with estimated date of delivery of 04/22. 2. Small subchorionic hematoma.
== END 2024-10-19 15:24 | disposition home or self-care (01) ==
LOC: GOSHIMG 15:23
PROVIDERS: PCP Nurse Practitioner Obstetrics & Gynecology; Visit Provider Nurse Practitioner Obstetrics & Gynecology
DX: N91.2 Amenorrhea, unspecified (principal)
CPT/HCPCS: 76801

== ENCOUNTER 2024-12-10 09:18 | Outpatient (CLI) | payer OTHER, SELFPAY ==
[2024-12-10 09:50] LABS: Hematocrit 34.6 % (37.0-47.0); Hemoglobin 10.5 g/dL (12.0-15.0); Mean Corpuscular HGB Conc 30.3 g/dl (32-36); Mean Corpuscular Hemoglobin 26.6 pg (26-34); Mean Corpuscular Volume 87.8 fl (80-100); Mean Platelet Volume 10.4 fl (7.4-10.4); Platelet Count Result 233 k/mm3 (150-375); Red Blood Count 3.94 M/mm3 (4.2-5.4); Red Cell Distribution Width 12.5 % (11.5-14.5); White Blood Count 7.8 K/mm3 (4.5-10.0)
[2024-12-10 09:55] LABS: Add Urine Microscopic? YES; Appearance Urine Turbid (Clear); Bilirubin Urine Negative (Negative); Blood Urine Negative (Negative); Color Urine Dark Yellow (Yellow); Glucose Urine UA Negative (Negative); Ketones Urine Trace mg/dL (Negative); Leukocyte Esterase Ur 2+ LEU/UL (Negative); Nitrate Urine Negative (Negative); Protein Urine 1+ mg/dL (Negative); Specific Grav Ur 1.028 (1.001-1.035); pH Urine 5.5 (5.0-9.0)
--- OUTSIDE RECORDS SUMMARY | 2024-12-10 10:19 | XMS_ITS | Clinical Summary ---
Author Organization [facility] Address [address] [place] [address] Phone Care Team Providers Care Railroader Name Role Phone Unavailable Primary Care Provider Unavailabl e Social History Tobacco Use Types Packs/Day Years Used Date Smoking Tobacco: Never Assessed Comments Unknown Sex and Gender Information Value Date Recorded Sex Assigned at Not on file Legal Sex Female 1:52 PM CDT Gender Identity Not on file Sexual Orientation Not on file Plan of Treatment Upcoming Encounters Date Type Department Care Team (Late st Contact Info) Description 12/20/2024 2:45 PM CDT Appointment [facility] [address] [place] [address] Raymon Garcia MD [address] [place] [address] Health Maintenance Due Date Last Done Comments DTAP/TDAP/TD VACCINES (1 - Tdap) 2012 HEPATITIS B VACCINES (1 of 3 - 19+ 3-dose series) 2012 Preventative Visit-Managed Medicaid 2012 PAP SMEAR 2023 INFLUENZA VACCINE (#1) 2024 HPV VACCINES Aged Out No longer eligi ble based on patient's age to complete this topic Insurance [employer]
--- OUTSIDE RECORDS SUMMARY | 2024-12-10 10:19 | XMS_ITS | Clinical Summary ---
Author Organization [facility] Address [facility] [place] [address] Care Team Providers Care Music Copyist Name Role Phone None, Provider MD Primary Care Provider Unavaila ble Allergies No known active allergies Medications doxylamine-pyri doxine EC 10-10 MG tabletIndicatio ns:Nausea Take two tablets by mouth at bedtime on day 1 and 2. If symptoms persist, take 1 tablet by mouth in morning and 2 tablets by mouth at bedtime on day 3. If symptoms persist, take 1 tablet by mouth in morning, 1 tablet by mouth mid-afternoon, and 2 tablets by mouth at bedtime on day 4. Maximum dose: doxylamine 40 mg/pyridoxine 40 mg (4 tablets) per day. 12 tablet 0 Active Active Problems No known active problems Social History Tobacco Use Types Packs/Day Years Used Date Smoking Tobacco: Never Smokeless Tobacco: Never Alcohol Use Standard Drinks/Week Comments Not Currently 0 (1 standard drink = 0.6 oz pur e alcohol) Comments Unknown Sex and Gender Information Value Date Recorded Sex Assigned at Not on file Legal Sex Female 10:03 PM [employer] Gender Identity Not on file Sexual Orientation Not on file Last Filed Vital Signs Vital Sign Reading Time Taken Comments Blood Pressure 106/52 05/06/2020 5:00 PM CDT Pulse 100 05/06/2020 5:00 PM CDT Temperature 36.7 C (98.1 F) 05/06/2020 5:00 PM CDT Respiratory Rate 20 05/06/2020 5:00 PM CDT Oxygen Saturation 98% 05/06/2020 5:00 PM CDT Inhaled Oxygen Concentration - - Weight 69.4 kg (153 lb) 05/06/2020 5:00 PM CDT Height 167.6 cm (5' 6 ) 05/06/2020 5:00 PM CDT Body Mass Index 24.69 05/06/2020 5:00 PM CDT Plan of Treatment Health Maintenance Due Date Last Done Comments Cervical Cancer Screening Pa p Smear (Age 30 to 64) Every 3 Years 1993 Annual Physical 1996 Hepatitis C 2011 DTaP, Tdap and Td Vaccines ( 1 - Tdap) 2012 06/13/1994, 03/29/1994, 1993 Hepatitis B Vaccines (1 of 3 - 19+ 3-dose series) 2012 Cervical Cancer Screening Pa p with HPV Testing (Age 30 to 64) Every 5 Years 2023 Cervical Cancer Screening wi th HPV 2023 COVID-19 Vaccine ( - 2023-2 5 season) 2024 Influenza Adult (#1) 2024 HPV Vaccines Aged Out No longer eligi ble based on patient's age to complete this topic Meningococcal B Vaccine Aged Out No l onger eligible based on patient's age to complete this topic Meningococcal Vaccine Aged Out No arnav dahiana eligible based on patient's age to complete this topic Pneumococcal Vaccine: Pediatrics (0 to 5 Years) and At-Risk Patients (6 to 64 Years) Aged Out No longer eligible b ased on patient's age to complete this topic RSV Immunizations Under 20 Months Aged Out No longer eligible b ased on patient's age to complete this topic Insurance [employer] Care Teams Music Copyist Relationship Specialty Start Date End Date None, Provider, PCP - General 01/24/20
[2024-12-10 10:37] LABS: Thyroid Stimulating Hormone 0.746 uIU/mL (0.465-4.680)
[2024-12-10 10:48] LABS: HIV 1/2 Ab P24 Ag Result Negative (Negative)
[2024-12-10 11:14] LABS: Syphilis IgG/IgM Antibody Negative (Negative)
[2024-12-10 11:35] LABS: Hepatitis B Surface Anti Res Negative; Hepatitis C Virus Antibody Negative (Negative)
[2024-12-13 10:58] LABS: Hematocrit 34.4 % (35.0-45.0); Hemoglobin 10.6 g/dL (11.7-15.5); MCH 27.2 pg (27.0-33.0); MCV 88.4 fL (80.0-100.0); RDW 12.2 % (11.0-15.0); Red Blood Cell Count 3.89 Million/uL (3.80-5.10)
[2024-12-13 15:07] LABS: Rubella IgG Antibody 95.3 IU/ML
== END 2024-12-10 09:19 | disposition home or self-care (01) ==
LOC: ANHLAB 09:19
PROVIDERS: Visit Provider Nurse Practitioner Obstetrics & Gynecology
DX: Z34.90 Encounter for supervision of normal pregnancy, unspecified, unspecified trimester (principal)
CPT/HCPCS: 36415; 81001; 83021; 84443; 85027; 86592; 86593; 86703; 86706; 86762; 86787; 86803; 86850; 86900; 86901; 87086; G0432

== ENCOUNTER 2025-02-17 11:10 | Outpatient (CLI) | payer OTHER, SELFPAY ==
--- OUTSIDE RECORDS SUMMARY | 2025-02-17 11:14 | XMS_ITS | Clinical Summary ---
Author Organization [facility] Address [address] [place] [phone] Phone Care Team Providers Care Livestock Trucker Name Role Phone Unavailable Primary Care Provider Unavailabl e Encounters Date Type Department Care Team Description 12/21/2024 External Device Data STL ABSTRACTION Provider, Abstract 12/21/2024 External Device Data STL ABSTRACTION Provider, Abstract 12/21/2024 External Device Data STL ABSTRACTION Provider, Abstract 12/20/2024 2:45 PM CDT - 12/20/2024 11:59 PM CDT Hospital Encounter [facility] Maternal and [facility] [address] [place] [address] Raymon Turner MD Discharge Disposition: Home or Self Care from Last 3 Months Social History Tobacco Use Types Packs/Day Years Used Date Smoking Tobacco: Never Assessed Comments Unknown Sex and Gender Information Value Date Recorded Sex Assigned at Not on file Legal Sex Female 1:52 PM CDT Gender Identity Not on file Sexual Orientation Not on file Plan of Treatment Health Maintenance Due Date Last Done Comments DTAP/TDAP/TD VACCINES (1 - Tdap) 2012 HEPATITIS B VACCINES (1 of 3 - 19+ 3-dose series) 2012 HPV/Cotest (21-29) 2014 CERVICAL CANCER SCREENING 2023 HPV/Cotest (30-65) 2023 PAP SMEAR 2023 INFLUENZA VACCINE (#1) 2024 HPV VACCINES Aged Out No longer eligi ble based on patient's age to complete this topic Procedures Procedure Name Priority Date/Time Associated Diagnosis Comments US OB 14+ WKS SINGLE GEST Routine 12/20/2024 3:38 PM CDT screening for malformation using ultrasonics from Last 3 Months Results * US OB 14+ WKS SINGLE GEST (12/20/2024 3:38 PM CDT) Anatomical Region Laterality Modality Pelvis Ultrasound 12/20/2024 2:58 PM CDT Narrative 12/20/2024 3:46 PM CDT STL BASIC ----- Pat. Name: DASH VARELA Study Date: 12/20/2024 2:58pm Pat. NO: [id number] Referring MD: RAYMON TURNER MD Site: [place] White Sourer: Re Valdes RDMS : 1995 Age: 29 ----- INDICATION ----- Anatomy Survey Herpes Simplex Virus Complicating CODING ----- Diagnoses Z3A.19: Weeks of gestation O98.512: Other viral diseases complicating Z36.3: Encounter for screening for malformations Procedures 94741: Ultrasound, uterus, real time with image documentation, and maternal evaluation, after first trimester (> or = 14 weeks 0 days), transabdominal approach; single or first gestation HISTORY ----- OB History 4. Para 2 T2A1L2 MATERNAL ASSESSMENT ----- Physical Exam Weight 84 kg. BMI 29.86 kg/m METHOD ----- Transabdominal ultrasound examination ----- Carranza . Number of fetuses: 1 DATING ----- Cycle: regular cycle Method of dating: based on stated PARI GA by prior assessment 19 w + 6 d PARI by prior assessment: 05/10/2025 Ultrasound examination on: 12/20/2024 GA by U/S based upon: AC, BPD, EFW, Femur, HC GA by U/S 19 w + 3 d PARI by U/S: 05/13/2025 Assigned: based on stated PARI, selected on 12/20/2024 Assigned GA 19 w + 6 d Assigned PARI: 05/10/2025 BIOMETRY ----- BPD 43.3 mm 19w 1d 20% Hadlock OFD 59.1 mm 20w 4d 73% Rosey HC 164.1 mm 19w 1d 14% Hadlock Cerebellum tr 19.6 mm 19w 4d 43% Hua Nuchal fold 2.7 mm AC 146.5 mm 20w 0d 47% Hadlock Femur 30.8 mm 19w 4d 31% Hadlock HC / AC 1.12 18% Nicolaides Weight Calculation: EFW 306 g 19w 4d 35% Hadlock EFW (lb,oz) 0 lb 11 oz EFW by Hadlock ([id number]) Head / Face / Neck Biometry: Vegetable Inspector 6.1 mm CM 4.5 mm 35% Nicolaides Outer IOD 28.6 mm 18w 4d 9% Rosey Extremities / Bony Struc Biometry: FL / BPD 0.71 64% Hadlock FL / HC 0.19 68% Hadlock FL / AC 0.21 30% Hadlock GENERAL EVALUATION ----- Cardiac activity present. FHR 155 bpm. movements: visualized. Presentation: Variable Placenta: Placental site: anterior Umbilical cord: Cord vessels: 3 vessel cord. Insertion site: placental insertion: normal Amniotic fluid: Amount of AF: normal amount. MVP 5.4 cm ANATOMY ----- The following structures appear normal: Head / Neck Cranium. Lateral ventricles. Choroid plexus. Midline falx. Cavum septi pellucidi. Cerebellum. Cisterna magna. Nuchal fold. Face Lips. Profile. Nose. Palate. Orbits. Heart / Thorax 4-chamber view. RVOT view. LVOT view. 3-vessel view. 2-ecojxn-pdgcrjx view. Situs. Aortic arch view. Ductal arch view. Superior vena cava. Inferior vena cava. High short axis view. Cardiac rhythm. Diaphragm. Abdomen Abdominal wall. Cord insertion. Stomach. Kidneys. Bladder. Genitals. Spine Cervical spine. Thoracic spine. Lumbar spine. Sacral spine. Extremities / Arms. Right hand. Left hand. Legs. Right foot. Left foot. Skeleton MATERNAL STRUCTURES ----- Cervix Visualized Approach - Transabdominal: Cervical length 45.5 mm Right Ovary Suboptimal Left Ovary Suboptimal GROWTH OVERVIEW ----- Exam date GA BPD (mm) HC (mm) AC (mm) FL (mm) HL (mm) EFW (g) 12/20/2024 19w 6d 43.3 20% 164.1 14% 146.5 47% 30.8 31% 306 35% COMMENT ----- Patient's name and date of were confirmed by the registrar nurses' registry prior to the exam IMPRESSION ----- Viable at 19 weeks gestation. The biometry is consistent with the established gestational age No structural malformations or markers of aneuploidy identified Amniotic fluid volume is normal Anterior placenta with normal placental cord insertion appreciated; placenta is not low-lying Cervical length based upon a transabdominal ultrasound assessment Ultrasound cannot identify all structural malformations nor exclude a diagnosis of aneuploidy No follow-up ultrasounds were scheduled at this time Recommend a follow-up ultrasound at 32 to 36 weeks gestation to assess growth and development Procedure Note True Blood MD - 12/20/2024 STL BASIC ----- Pat. Name:Cornell VARELA Date:12/20/2024 2:58pm Pat. NO: [id number] MD:RAYMON TURNER MD Site:Chikaographer:Re Valdes RDMS :1995Age:29 ----- INDICATION ----- Anatomy Survey Herpes Simplex Virus Complicating CODING ----- Diagnoses Z3A.19: Weeks of gestation O98.512: Other viral diseases complicatingpregnancy Z36.3: Encounter for screening formalformations Procedures [id number]: Ultrasound, uterus, real time withimage documentation, and maternal evaluation, after first trimester (> or = 14 weeks 0 days),transabdominal approach; single or first gestation HISTORY ----- OB History 4. Para 2 T2A1L2 MATERNAL ASSESSMENT ----- Physical Exam Weight 84 kg. BMI 29.86 kg/m METHOD ----- Transabdominal ultrasound examination ----- Carranza . Number of fetuses: 1 DATING ----- Cycle:regular cycle Method of dating:based on stated PARI GA by prior [id number] w + 6 d PARI by prior assessment:05/10/2025 Ultrasound examination on:12/20/2024 GA by U/S based upon:AC, BPD, EFW, Femur, HC GA by U/S19 w + 3 d PARI by U/S:05/13/2025 Assigned:based on stated PARI, selected on 12/20/2024 Assigned GA19 w + 6 d Assigned PARI:05/10/2025 BIOMETRY ----- BPD 43.3 mm 19w 1d20% Hadlock OFD 59.1 mm 20w 4d73% Rosey HC 164.1 mm 19w 1d14% Hadlock Cerebellum tr 19.6 mm 19w 4d43% Hua Nuchal fold 2.7 mm AC 146.5 mm 20w 0d47% Hadlock Femur 30.8 mm 19w 4d31% Hadlock HC / AC 1.12 18%Nicolaides Weight Calculation: EFW 306 g 19w 4d 35%Hadlock EFW (lb,oz) 0 lb 11 oz EFW by Hadlock ([id number]) Head / Face / Neck Biometry: Vegetable Inspector 6.1 mm CM 4.5 mm 35%Nicolaides Outer IOD 28.6 mm 18w 4d 9%Rosey Extremities / Bony Struc Biometry: FL / BPD 0.71 64%Hadlock FL / HC 0.19 68%Hadlock FL / AC 0.21 30%Hadlock GENERAL EVALUATION ----- Cardiac activity present. FHR 155 bpm. movements: visualized.Presentation: Variable Placenta: Placental site: anterior Umbilical cord: Cord vessels: 3 vessel cord. Insertion site: placentalinsertion: normal Amniotic fluid: Amount of AF: normal amount. MVP 5.4 cm ANATOMY ----- The following structures appear normal: Head / Neck Cranium. Lateral ventricles. Choroid plexus.Midline falx. Cavum septi pellucidi. Cerebellum. Cisterna magna. Nuchal fold. Face Lips. Profile. Nose. Palate. Orbits. Heart / Thorax 4-chamber view. RVOT view. LVOT view. 3-vesselview. 8-rpibvd-iejeazl view. Situs. Aortic arch view. Ductal arch view. Superior vena cava. Inferiorvena cava. High short axis view. Cardiac rhythm. Diaphragm. Abdomen Abdominal wall. Cord insertion. Stomach. Kidneys.Bladder. Genitals. Spine Cervical spine. Thoracic spine. Lumbar spine.Sacral spine. Extremities / Arms. Right hand. Left hand. Legs. Right foot.Left foot. Skeleton MATERNAL STRUCTURES ----- Cervix Visualized Approach - Transabdominal: Cervical length 45.5mm Right Ovary Suboptimal Left Ovary Suboptimal GROWTH OVERVIEW ----- Exam date GA BPD (mm) HC (mm) AC (mm) FL(mm) HL (mm) EFW (g) 12/20/2024 19w 6d 43.3 20% 164.1 14% 146.5 47%30.8 31% 306 35% COMMENT ----- Patient's name and date of were confirmed by the registrar nurses' registry priorto the exam IMPRESSION ----- Viable at 19 weeks gestation. The biometry is consistent with the established gestational age No structural malformations or markers of aneuploidy identified Amniotic fluid volume is normal Anterior placenta with normal placental cord insertion appreciated;placenta is not low-lying Cervical length based upon a transabdominal ultrasound assessment Ultrasound cannot identify all structural malformations nor exclude adiagnosis of aneuploidy No follow-up ultrasounds were scheduled at this time Recommend a follow-up ultrasound at 32 to 36 weeks gestation to assessfetal growth and development us Raymon Turner MD ORDERABLES Final Result from Last 3 Months Insurance [employer] [facility] Address: [facility] [address] [place], [place] [id number] [place] [address]
[2025-02-17 13:07] LABS: Hematocrit 35.4 % (37.0-47.0); Hemoglobin 10.8 g/dL (12.0-15.0); Mean Corpuscular HGB Conc 30.5 g/dl (32-36); Mean Corpuscular Hemoglobin 26.4 pg (26-34); Mean Corpuscular Volume 86.6 fl (80-100); Mean Platelet Volume 10.9 fl (7.4-10.4); Platelet Count Result 230 k/mm3 (150-375); Red Blood Count 4.09 M/mm3 (4.2-5.4); Red Cell Distribution Width 13.2 % (11.5-14.5); White Blood Count 9.8 K/mm3 (4.5-10.0)
[2025-02-17 13:20] LABS: Glucose 1 Hour PP 50gm Dose 168 mg/dL
== END 2025-02-17 11:11 | disposition home or self-care (01) ==
PROVIDERS: Visit Provider Obstetrics & Gynecology
DX: Z34.90 Encounter for supervision of normal pregnancy, unspecified, unspecified trimester (principal)
CPT/HCPCS: 36415; 82947; 85027

== ENCOUNTER 2025-02-25 07:21 | Outpatient (CLI) | payer OTHER, SELFPAY ==
--- OUTSIDE RECORDS SUMMARY | 2025-02-25 07:24 | XMS_ITS | Clinical Summary ---
Author Organization [facility] Address [address] [place] [address] Phone Care Team Providers Care Pastry Cook Name Role Phone Unavailable Primary Care Provider Unavailabl e Encounters Date Type Department Care Team Description 12/21/2024 External Device Data STL ABSTRACTION Provider, Abstract 12/21/2024 External Device Data STL ABSTRACTION Provider, Abstract 12/21/2024 External Device Data STL ABSTRACTION Provider, Abstract 12/20/2024 2:45 PM CDT - 12/20/2024 11:59 PM CDT Hospital Encounter [facility] Maternal [facility] [address] [place] [address] Raymon Turner MD Discharge Disposition: [...] VARELA Study Date: 12/20/2024 2:58pm Pat. NO: [id number] Referring MD: RAYMON TURNER MD Site: [place] Cable Wirer: Re Valdes RDMS : 1995 Age: 29 ----- INDICATION ----- Anatomy Survey Herpes Simplex Virus Complicating CODING ----- Diagnoses Z3A.19: Weeks of gestation O98.512: Other viral diseases complicating Z36.3: Encounter for screening for malformations Procedures [id number]: Ultrasound, uterus, real time with image documentation, [...] 0 lb 11 oz EFW by Hadlock ([id number]) Head / Face / Neck Biometry: Superintendent Board Mill 6.1 mm CM 4.5 mm 35% Nicolaides [...] view. RVOT view. LVOT view. 3-vessel view. 7-hsaxgm-ytbucbs view. Situs. Aortic arch view. Ductal arch [...] and date of were confirmed by the supervisor dyer prior to the exam IMPRESSION ----- Viable [...] Pat. Name:Cornell VARELA Date:12/20/2024 2:58pm Pat. NO: [id number] MD:RAYMON TURNER MD Site:Chikaographer:Re Valdes RDMS :1995Age:29 ----- INDICATION ----- Anatomy Survey Herpes Simplex Virus Complicating CODING ----- Diagnoses Z3A.19: Weeks of gestation O98.512: Other viral diseases complicatingpregnancy Z36.3: Encounter for screening formalformations Procedures 83053: Ultrasound, uterus, real time withimage documentation, and [...] dating:based on stated PARI GA by prior [id number] w + 6 d PARI by prior [...] 0 lb 11 oz EFW by Hadlock ([id number]) Head / Face / Neck Biometry: Superintendent Board Mill 6.1 mm CM 4.5 mm 35%Nicolaides Outer [...] 4-chamber view. RVOT view. LVOT view. 3-vesselview. 5-hmitsb-ouidsvx view. Situs. Aortic arch view. Ductal arch [...] and date of were confirmed by the supervisor dyer priorto the exam IMPRESSION ----- Viable at [...] Last 3 Months Insurance [employer] [place] [address]
[2025-02-25 08:07] LABS: Glucose Fasting Gestational 104 mg/dL (>/=95)
[2025-02-25 09:39] LABS: Glucose 1 Hour Gest 185 mg/dL (>/=180)
[2025-02-25 11:00] LABS: Glucose 2 Hour Gest 142 mg/dL (>/= 155)
[2025-02-25 11:48] LABS: Glucose 3 Hour Gest 99 mg/dL (>/=140)
== END 2025-02-25 07:22 | disposition home or self-care (01) ==
LOC: ANHLAB 07:22
PROVIDERS: Visit Provider Obstetrics & Gynecology
DX: O99.810 Abnormal glucose complicating pregnancy (principal); Z3A.00 Weeks of gestation of pregnancy not specified
CPT/HCPCS: 36415; 82951; 82952

== ENCOUNTER 2025-04-07 10:22 | Outpatient (CLI) | payer OTHER, SELFPAY ==
--- OUTSIDE RECORDS SUMMARY | 2025-04-07 10:44 | XMS_ITS | Clinical Summary ---
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 Gender Identity Not on file Sexual Orientation [...] 5:00 PM CDT Height 167.6 cm (5' 6) 05/06/2020 5:00 PM CDT Body Mass Index [...] Vaccine ( - 2023-2 5 season) 2024 HPV Vaccines Aged Out No longer eligi ble based on patient's age to complete this topic Meningococcal B Vaccine Aged Out No l onger eligible based on patient's age to complete this topic Meningococcal Vaccine Aged Out No arnav dahiana eligible based on patient's age to complete this topic Pneumococcal Vaccine: Pediatrics (0 to 5 Years) and At-Risk Patients (6 to 49 Years) Aged Out No longer eligible b ased on patient's age to complete this topic RSV Immunizations Under 20 Months Aged Out No longer eligible b ased on patient's age to complete this topic Insurance [employer] Care Teams Pipe Racker Relationship Specialty Start Date End Date None, Provider, PCP - General 01/24/20
--- OUTSIDE RECORDS SUMMARY | 2025-04-07 10:44 | XMS_ITS | Encounter Summary ---
Author Organization [facility] Address [address] [place] [address] Care Team Providers Care Osteopathic Neurologist Name Role Phone Unavailable Primary Care Provider Unavailabl e Encounter Details Date Type Department Care Team (Late st Contact Info) Description 04/05/2025 External Device Data STL ABSTRACTION Provider, Abstract NO ADDRESS ON FILE Social History Tobacco Use Types Packs/Day Years Used Date Smoking Tobacco: Never Assessed Comments Unknown Sex and Gender Information Value Date Recorded Sex Assigned at Not on file Legal Sex Female 1:52 PM CDT Gender Identity Not on file Sexual Orientation Not on file documented as of this encounter Plan of Treatment Not on file documented as of this encounter Visit Diagnoses Not on filedocumented in this encounter
--- OUTSIDE RECORDS SUMMARY | 2025-04-07 10:44 | XMS_ITS | Clinical Summary ---
Author Organization [facility] Address [address] [place] [address] Phone Care Team Providers Care Dock Coordinator Name Role Phone Unavailable Primary Care Provider Unavailabl e Encounters Date Type Department Care Team Description 04/05/2025 External Device Data STL ABSTRACTION Provider, Abstract 03/22/2025 External Device Data STL ABSTRACTION Provider, Abstract from Last 3 Months Social History Tobacco Use Types Packs/Day Years Used Date Smoking Tobacco: Never Assessed Comments Unknown Sex and Gender Information Value Date Recorded Sex Assigned at Not on file Legal Sex Female 1:52 PM CDT Gender Identity Not on file Sexual Orientation Not on file Plan of Treatment Health Maintenance Due Date Last Done Comments HPV VACCINES (1 - 3-dose series) 2008 DTAP/TDAP/TD VACCINES (1 - Tdap) 2012 HEPATITIS B VACCINES (1 of 3 - 19+ 3-dose series) 05/24 HPV/Cotest (21-29) 2014 CERVICAL CANCER SCREENING 2023 HPV/Cotest (30-65) 2023 PAP SMEAR 2023 INFLUENZA VACCINE (#1) 2025 Insurance [employer] [facility] [id number]
[2025-04-07 11:42] LABS: Syphilis IgG/IgM Antibody Non-Reactive (Nonreactive)
[2025-04-07 11:54] LABS: HIV 1/2 Ab P24 Ag Result Negative (Negative)
[2025-04-07 12:50] LABS: Hematocrit 36.0 % (37.0-47.0); Hemoglobin 10.9 g/dL (12.0-15.0); Mean Corpuscular HGB Conc 30.3 g/dl (32-36); Mean Corpuscular Hemoglobin 25.8 pg (26-34); Mean Corpuscular Volume 85.3 fl (80-100); Platelet Count Result 226 k/mm3 (150-375); Red Blood Count 4.22 M/mm3 (4.2-5.4); White Blood Count 8.5 K/mm3 (4.5-10.0)
== END 2025-04-07 10:23 | disposition home or self-care (01) ==
LOC: ANHLAB 10:24
PROVIDERS: Visit Provider Nurse Practitioner Obstetrics & Gynecology
DX: Z34.90 Encounter for supervision of normal pregnancy, unspecified, unspecified trimester (principal); Z20.828 Contact with and (suspected) exposure to other viral communicable diseases
CPT/HCPCS: 36415; 85027; 86593; 86703; G0432

== ENCOUNTER 2025-04-28 12:06 | Outpatient (RCR) | payer OTHER, SELFPAY ==
[2025-03-24 13:40] VITALS: BP 102/65; PULSE 95
[2025-03-31 12:15] VITALS: BP 111/64; PULSE 104
[2025-04-07 08:37] VITALS: BP 107/64; PULSE 85
[2025-04-14 13:15] VITALS: BP 107/64; PULSE 85
[2025-04-21 12:29] VITALS: BP 103/65; PULSE 88
[2025-04-22 18:20] VITALS: BP 114/63; PULSE 82
--- NOTE | ~2025-04-28 | US_ITS ---
EXAMINATION: US OB follow up DATE: 03/24/2025 13:12 INDICATION: Estimate weight and growth percentage during third trimester . Assess amni otic fluid index. TECHNIQUE: Real-time ultrasound of the pelvis was performed. The interpreting radiologist was not pre sent for the study. COMPARISON: None. FINDINGS: There is a single living fetus in vertex presentation. The placenta is anterior. heart rate is 137 beats per minute (bpm). The amniotic fluid index is 9.3 cm, which is normal. (5th%-95%: 7.4-24.5 cm at 33 weeks estimated gestational age). The following biometric data were obtained: BPD: 8.1 cm -> 32 weeks 4 days Head circumference: 29.8 cm -> 33 weeks 0 days Abdominal circumference: 3 cm -> 0.834 weeks 6 days Femur length: 6.7 cm -> 34 weeks 4 days These measurements are concordant. Head circumference to abdominal circumference ratio: 0.97 (normal range 0.95-1.11). Estimated weight: 2401 g (+/-) 360 g or 5 lbs. 5 oz. (+/-) 13 oz. IMPRESSION: 1. Single living fetus in vertex presentation with heart rate of 137 bpm. 2. Normal amniotic fluid index of 9.3 cm. 3. Estimated weight is 74th percentile by Hadlock criteria when 05/10/2025 is used as the estima syed date of delivery (PARI). Please correlate with clinical information or earlier ultrasounds for mos t accurate PARI. Reviewed, dictated and finalized at location B. IMPRESSION: 1. Single living fetus in vertex presentation with heart rate of 137 bpm. 2. Normal amniotic fluid index of 9.3 cm. 3. Estimated weight is 74th percentile by Hadlock criteria when 05/10/2025 is used as the estimated date of delivery (PARI). Please correlate with clinica l information or earlier ultrasounds for most accurate PARI.
--- NOTE | ~2025-04-28 | US_ITS ---
LIMITED OBSTETRIC ULTRASOUND/BIOPHYSICAL PROFILE Ordering provider: Raymon Garcia MD History: . BPP, SIM, GDM . Comparison: None. FINDINGS: MATERNAL CERVIX: Not visualized. cm which is normal (normal is equal to or greater than 3.0 cm). PRESENTATION: Vertex. Longitudinal lie. PLACENTAL LOCATION: Anterior. No previa. HEART RATE: 161 bpm. AMNIOTIC FLUID INDEX: 12.1 cm. 5th percentile is 7.9 cm. 95th percentile is 24.9 cm. Largest vertica l pocket is 4.5 cm. normal (SIM between 5-25 cm in from 20-35 weeks gestation is considered normal). OTHER: Maternal ovaries not visualized. SCORE: breathing movements: 2 movements: 2 tone: 2 Amniotic fluid volume: 2 Total: 8 IMPRESSION: Normal biophysical profile. Normal amniotic fluid. Reviewed, dictated and finalized at location A.
--- NOTE | ~2025-04-28 | US_ITS ---
EXAMINATION: US OB follow up w BPP DATE: 04/21/2025 12:31 INDICATION: Assess biophysical profile, amniotic fluid index and estimated weight bearing third trimester TECHNIQUE: Real-time pelvic ultrasound was performed. The interpreting radiologist was not present fo r the study. COMPARISON: None. FINDINGS: There is a single living fetus in vertex presentation. The placenta is anterior and not low-lying. F etal heart rate is 163 beats per minute (bpm). Normal amniotic fluid index of 8.4 cm (5th%-95%: 7.5-2 4.4 cm at 37 weeks estimated gestational age) Biophysical profile performed by the technologist: breathing (30 sec sustained breathing in 30 minutes): 0 out of 2 movement (3 gross body movements in 30 minutes): 2 out of 2 tone (one episode of pfopjth-lxssejrnn-ftefwbt limb movement): 2 out of 2 Amniotic fluid pocket (2 cm): 2 out of 2 Total score: 6 out of 8 IMPRESSION: 1. Single living fetus in vertex presentation with heart rate of 163 bpm. 2. Biophysical profile 6 out of 8. No points given for 30 seconds of observed sustained breath ing over the course of 30 minutes. 3. Normal amniotic fluid index of 8.4 cm. Reviewed, dictated and finalized at location A. IMPRESSION: 1. Single living fetus in vertex presentation with heart rate of 163 bpm. 2. Biophysical profile 6 out of 8. No points given for 30 seconds of observed sustained breathing over the course of 30 minutes. 3. Normal amniotic fluid index of 8.4 cm.
--- NOTE | ~2025-04-28 | US_ITS ---
US OB limited 04/28/2025 13:26 Indication: Evaluate amniotic fluid Procedure: Limited obstetrical ultrasound using transabdominal technique Comparison: Ultrasound dated 04/22/2025 Findings: There is a single living intrauterine in vertex presentation. heart rate is 175 BPM. Placenta is anterior without previa. Amniotic fluid volume is normal measuring 9.1 cm (norm al range 7.3-23.9 cm). Impression: 1: Normal SIM measures 9.1 cm. Reviewed, dictated and finalized at location A. Impression: 1: Normal SIM measures 9.1 cm.
--- NOTE | ~2025-04-28 | US_ITS ---
EXAMINATION: US OB BPP wo non-stress DATE: 04/14/2025 13:36 CDT INDICATION: GBM. Evaluate SIM. TECHNIQUE: Real-time transabdominal obstetric ultrasound. FINDINGS: There is a single living fetus in vertex presentation. The placenta is anterior without placenta pre via. SIM is normal measuring 8.2 cm (normal range 7.7-24.9 cm. cardiac activity and movement is noted with a heart rate of 147 beats per minute. Biophysical profile: breathin of 2 movement: 2 of 2 tone: 2 of 2 Amniotic flud pocket: 2 of 2 Total score: 8 of 8 IMPRESSION: 1. Single living intrauterine in vertex presentation. 2: Total biophysical profile score of 8/8. Reviewed, dictated and finalized at location A.
--- NOTE | ~2025-04-28 | US_ITS ---
EXAMINATION: US OB BPP wo non-stress DATE: 04/22/2025 19:12 INDICATION: BPP 6/8 on 04/21 . TECHNIQUE: Real-time ultrasound of the pelvis was performed. COMPARISON: 04/21/2025 FINDINGS: There is a single living fetus in vertex presentation, longitudinal lie. The placenta is anterior, w ell distant from the cervix. heart rate is 161 bpm. The amniotic fluid index is 11.1 cm, which is normal (5th to 95th percentile is 7.5 to 24.4 cm). Biophysical profile performed by the technologist: breathing (30 sec sustained breathing in 30 minutes): 2 out of 2. movement (3 gross body movements in 30 minutes: 2 out of 2. tone (one episode of lhlhaev-nkaiyyszb-yzegzhd limb movement): 2 out of 2. Amniotic fluid pocket (2 cm): 2 out of 2. Total score: 8 out of 8. IMPRESSION: Single living fetus in vertex presentation. Biophysical profile 8 out of 8. Mild tachycardia of 161 bpm. Reviewed, dictated and finalized at location K.
[2025-04-28 12:49] VITALS: BP 105/59; PULSE 86
--- NOTE | 2025-04-29 13:32 | PC.NURSE ---
SVE 1-1.5 cm, 40%, -3
[2025-04-29 14:55] VITALS: BP 123/71; PULSE 83; RESP 18
--- NOTE | 2025-04-29 15:02 | OBADM ---
This patient, Guillermo Varela, admitted to the OB room for observation. Patient/family oriented to hospital policies and general routines including ID bracelet, bed and alarms, visiting hours, pain management, procedures, bathroom and other care routines, personal items, smoking policy, room service/diet, and visiting hours. Patient/Family are encouraged to report perceived risks to care and to ask questions if they do not understand what they are told or what they should do.
== END 2025-05-19 13:37 | disposition other institution (70) ==
LOC: ANHOBOP 12:06
PROVIDERS: Visit Provider Obstetrics & Gynecology
DX: O24.419 Gestational diabetes mellitus in pregnancy, unspecified control (principal); Z3A.33 33 weeks gestation of pregnancy; Z3A.37 37 weeks gestation of pregnancy
CPT/HCPCS: 59025; 76815; 76816; 76819

== ENCOUNTER 2025-04-29 12:58 | Observation (INO) | payer OTHER, SELFPAY ==
[2025-04-29 13:30] VITALS: BP 116/69; PULSE 76; RESP 18
--- NOTE | 2025-04-29 15:45 | PC.NURSE ---
SVE after 2 hours has no change: 1 cm 40% -3
--- OUTSIDE RECORDS SUMMARY | 2025-04-29 16:19 | XMS_ITS | Clinical Summary ---
Author Organization [facility] Address [address] [place] [address] Phone Care Team Providers Care Weights And Measures Inspector Name Role Phone Unavailable Primary Care Provider Unavailabl e Encounters Date Type Department Care Team Description 04/27/2025 External Device Data STL ABSTRACTION Provider, Abstract 04/26/2025 External Device Data STL ABSTRACTION Provider, Abstract 04/06/2025 External Device Data STL ABSTRACTION Provider, Abstract 04/05/2025 External Device Data STL ABSTRACTION Provider, [...] VACCINE (#1) 2025 Insurance [place] [facility] [facility] Address: [facility] [address] [place] [address]
--- OUTSIDE RECORDS SUMMARY | 2025-04-29 16:19 | XMS_ITS | Clinical Summary ---
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
--- NOTE | 2025-05-02 07:55 | WPDHPUPDATE1 ---
History and Physical Update Update Date/Time: 05/02/25 07:55 History and Physical has been reviewed, including an updated exam of the patient. There are NO changes in the patient's condition. Risks, benefits, and alternatives have been discussed and questions answered. Patient agrees to proceed with procedure.
--- NOTE | 2025-05-02 17:51 | PM.OBTRLD ---
OB - Triage/Final Diagnosis Visit Information Date of evaluation: 04/29/25 Reason for evaluation: threatened labor Comments/Additional reasons for admission: I have assessed the risk for this patient, Guillermo Varela, and determined that she would benefit from observation care.
== END 2025-04-29 16:15 | disposition home or self-care (01) ==
PROVIDERS: Admitting Provider Student in an Organized Health Care Education/Training Program; Visit Provider Student in an Organized Health Care Education/Training Program
DX: O47.1 False labor at or after 37 completed weeks of gestation (principal); Z3A.38 38 weeks gestation of pregnancy
CPT/HCPCS: G0378; G0379

== ENCOUNTER 2025-05-05 17:25 | Inpatient (IN) | payer OTHER, SELFPAY ==
[2025-05-05] VITALS (11 sets, daily range): BP systolic 105–126; BP diastolic 59–74; PULSE 72–96; RESP 16–18; TEMP 36.4–36.6
--- OUTSIDE RECORDS SUMMARY | 2025-05-05 17:33 | XMS_ITS | Clinical Summary ---
Author Organization [facility] Address [address] [place] [address] Phone Care Team Providers Care Wafer Fab Operator Name Role Phone Unavailable Primary Care Provider [...]
--- OUTSIDE RECORDS SUMMARY | 2025-05-05 17:33 | XMS_ITS | Clinical Summary ---
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
[2025-05-05 18:08] LABS: Hematocrit 38.5 % (37.0-47.0); Hemoglobin 12.1 g/dL (12.0-15.0); Immature Granulocyte Percent A 0.8 % (0-0.5); Lymphocytes Absolute Auto 2.08 K/mm3 (0.9-3.2); Mean Corpuscular HGB Conc 31.4 g/dl (32-36); Mean Corpuscular Hemoglobin 26.5 pg (26-34); Mean Corpuscular Volume 84.2 fl (80-100); Nucleated Red Blood Cells Absolute Auto 0.000 K/mm3 (0.0-0.012); Nucleated Red Blood Cells Perc 0.0 % (0.0-0.2); Platelet Count Result 225 k/mm3 (150-375); Red Blood Count 4.57 M/mm3 (4.2-5.4); White Blood Count 8.9 K/mm3 (4.5-10.0)
--- NOTE | 2025-05-05 18:09 | LDADM ---
This patient, Guillermo Varela, was admitted to Labor/Delivery/Recovery 107 on 05/05/25 at 17:25. Plans for labor, pain management and were discussed with patient. Patient/family oriented to hospital policies and general routines including ID bracelet, bed and alarms, visiting hours, pain management, procedures, bathroom and other care routines, personal items, smoking policy, room service/diet and guest tray routines, security routines, and visiting hours. Patient/Family are encouraged to report perceived risks to care and to ask questions if they do not understand what they are told or what they should do. See OBIX for further documentation.
[2025-05-05 18:44] LABS: Syphilis IgG/IgM Antibody Non-Reactive (Nonreactive)
[2025-05-06] VITALS (175 sets, daily range): BP systolic 74–143; BP diastolic 50–114; PULSE 43–235; RESP 16–18; TEMP 36.2–37; O2SAT 90–100; BMI 33.1
--- NOTE | 2025-05-06 06:30 | WPDANESEPP ---
Anes - Eval Pre Procedure Procedure: Labor epidural Date/Time: 05/06/25 06:30 Surgeon: Radha Preop Diagnosis: Abdominal pain with contractions Pre Op Diagnosis: IOL Patient Data Age: 29 Gender: F Height: Weight: Last Vital Signs Temp 97.3 F L 05/06/25 06:00 Pulse 65 05/06/25 06:01 Resp 18 05/06/25 06:00 BP 109/72 05/06/25 06:01 O2 Del Method Room Air 05/05/25 20:00 Allergies Allergy/AdvReac Type Severity Reaction Status Date / Time No Known Allergies Allergy Verified 04/29/25 17:17 Home Medications ?Medication ?Instructions ?Recorded ?Confirmed ?Type valacyclovir 500 mg tablet 500 mg PO DAILY #90 tabs 09/03/24 04/29/25 Rx vitamins 30 30 mg iron-10 1 cap PO DAILY 10/15/24 04/29/25 History mg iron-folic acid 1 mg-om3 capsule ferrous sulfate 325 mg (65 mg 325 mg PO DAILY 03/02/25 04/29/25 History iron) tablet,delayed release blood-glucose sensor (Dexcom G7 #3 ea 03/14/25 04/21/25 Rx Sensor device) blood sugar diagnostic (OneTouch #100 ea 03/16/25 04/21/25 Rx Verio test strips) blood-glucose meter (OneTouch #1 ea 03/16/25 04/21/25 Rx Verio Flex Meter) lancets 33 gauge #100 ea 03/16/25 04/21/25 Rx triamcinolone acetonide 0.1 % 1 applic topical BID PRN rash #30 04/21/25 04/29/25 Rx topical cream grams Laboratory Tests 05/05/25 05/05/25 05/05/25 17:53 17:55 22:47 WBC 8.9 K/mm3 (4.5-10.0) RBC 4.57 M/mm3 (4.2-5.4) Hgb 12.1 g/dL (12.0-15.0) Hct 38.5 % (37.0-47.0) MCV 84.2 fl (80-100) MCH 26.5 pg (26-34) MCHC 31.4 L g/dl (32-36) RDW 14.0 % (11.5-14.5) Plt Count 225 k/mm3 (150-375) MPV 12.0 H fl (7.4-10.4) Immature Gran % (Auto) 0.8 H % (0-0.5) Neut % (Auto) 66.9 % (45.5-73.1) Lymph % (Auto) 23.4 % (18.3-44.2) [place] % (Auto) 7.9 % (2.6-8.5) Eos % (Auto) 0.4 % (0-4.4) Baso % (Auto) 0.6 % (0.2-1.2) Lymph # (Auto) 2.08 K/mm3 (0.9-3.2) Alexander # (Auto) 0.7 H K/mm3 (0.1-0.6) Eos # (Auto) 0.0 K/mm3 (0-0.3) Baso # (Auto) 0.1 K/mm3 (0.0-0.1) Abs Immat Gran (auto) 0.07 H K/mm3 (0.00-0.031) Absolute Neuts (auto) 6.0 K/mm3 (1.3-6.7) Absolute Nucleated RBC 0.000 K/mm3 (0.0-0.012) Nucleated RBC % 0.0 % (0.0-0.2) POC Capillary Glucose 126 H mg/dl 148 H mg/dl (65-105) (65-105) Syphilis IgG/IgM Ab Non-reactive (Nonreactive) Blood Type O Positive Antibody Screen Negative 05/06/25 05:25 WBC RBC Hgb Hct MCV MCH MCHC RDW Plt Count MPV Immature Gran % (Auto) Neut % (Auto) Lymph % (Auto) [place] % (Auto) Eos % (Auto) Baso % (Auto) Lymph # (Auto) [place] # (Auto) Eos # (Auto) Baso # (Auto) Abs Immat Gran (auto) Absolute Neuts (auto) Absolute Nucleated RBC Nucleated RBC % POC Capillary Glucose 95 mg/dl (65-105) Syphilis IgG/IgM Ab Blood Type Antibody Screen : gestational age HCG: positive Patient hx anesthesia problems: none Family hx anesthesia problems: none Results Review: All pre-operative results and documents have been reviewed as part of the pre-operative evaluation. PMFSH Past Medical History Medical History Diabetes in PCOS (polycystic ovarian syndrome) History of herpes genitalis Delivery normal History of miscarriage Vaginal delivery Surgical History Surgical History History of incision and drainage marsupialization of Bartholin's gland Family History Family History Grandparent Family history of malignant neoplasm of breast in first degree relative Heart failure Social History Social History Smoking status: Never smoker Second hand tobacco smoke exposure: No Alcohol intake: never Substance use: current Substance use type: marijuana Lack of Transportation: No Lack of Food: Never True Current Housing: I Have Housing Concerned About Future Housing: No Difficulty Paying Gas/Electric Bills: No Difficulty Paying for Meds: No Currently Unemployed: No Education: High School Diploma/GED Difficulty w/ Childcare or Family Care: No Spiritual care concerns: No Exam Day of Procedure 05/06/25 06:30
[2025-05-06] MEDS: LACTATED RINGERS 1,000 ML 125 ML IV CONT ×3 (06:47→15:29)
[2025-05-06] MEDS: OXYTOCIN 30 UNITS/NS 500 ML 30 UNITS/500 ML BAG IV CONT (07:40)
--- NOTE | 2025-05-06 08:40 | PM.IMHP ---
H&P: HPI History of Present Illness Date/Time: 05/06/25 08:40 Chief Complaint: Induction of labor Narrative: Patient is a 29 y/o at 39 weeks admitted for [facility] for diet controlled gestational diabetes. PNC also significant for h/o HSV, no lesions during , she was taking antiviral suppression. She has been informed of risk benefit of induction of labor versus spontaneous labor and has opted for induction of labor. Review of Systems Review of Systems: All systems reviewed & are unremarkable except as noted in HPI and below Constitutional: Constitutional: Reports no additional constitutional complaints and Denies headache(s) Eyes: Eyes: Denies spots in vision ENT: Reports system reviewed and no additional complaints, except as documented and Denies headache(s) Cardiovascular: Cardiovascular: Denies chest pain and Denies dyspnea Respiratory: Respiratory: Denies dyspnea Gastrointestinal: Gastrointestinal: Reports no additional gastrointestinal complaints Genitourinary: Genitourinary: Reports amenorrhea Musculoskeletal: Musculoskeletal: Reports no additional musculoskeletal complaints Integumentary/Breasts: Skin/Breast: Denies breast mass and Denies rash Neurologic: Denies headache(s) Psychiatric: Psychiatric: Reports no additional psychiatric complaints [facility] Past Medical History Medical History (Updated 05/06/25 @ 22:05 by Raymon Garcia MD) Diabetes in PCOS (polycystic ovarian syndrome) History of herpes genitalis Delivery normal History of miscarriage Vaginal delivery Surgical History Surgical History History of incision and drainage marsupialization of Bartholin's gland Family History Family History Grandparent Family history of malignant neoplasm of breast in first degree relative Heart failure Social History Social History Smoking status: Never smoker Second hand tobacco smoke exposure: No Alcohol intake: never Substance use: current Substance use type: marijuana Lack of Transportation: No Lack of Food: Never True Current Housing: I Have Housing Concerned About Future Housing: No Difficulty Paying Gas/Electric Bills: No Difficulty Paying for Meds: No Currently Unemployed: No Education: High School Diploma/GED Difficulty w/ Childcare or Family Care: No Spiritual care concerns: No Meds Home Medications and Allergies Home Medications ?Medication ?Instructions ?Recorded ?Confirmed ?Type valacyclovir 500 mg tablet 500 mg PO DAILY #90 tabs 09/03/24 05/06/25 Rx vitamins 30 30 mg iron-10 1 cap PO DAILY 10/15/24 05/06/25 History mg iron-folic acid 1 mg-om3 capsule ferrous sulfate 325 mg (65 mg 325 mg PO DAILY 03/02/25 05/06/25 History iron) tablet,delayed release blood-glucose sensor (dax Asparna G7 #3 ea 03/14/25 04/21/25 Rx Sensor device) blood sugar diagnostic (PhotoSolarTouch #100 ea 03/16/25 04/21/25 Rx Verio test strips) blood-glucose meter (PhotoSolarTouch #1 ea 03/16/25 04/21/25 Rx Verio Flex Meter) lancets 33 gauge #100 ea 03/16/25 04/21/25 Rx triamcinolone acetonide 0.1 % 1 applic topical BID PRN rash #30 04/21/25 05/06/25 Rx topical cream grams Allergies Allergy/AdvReac Type Severity Reaction Status Date / Time No Known Allergies Allergy Verified 05/06/25 06:48 Vital Signs Vital Signs - 24 hr 05/05/25 17:56 05/05/25 18:00 05/05/25 18:01 Temperature 97.6 F Pulse Rate 85 96 Respiratory Rate Blood Pressure 126/72 117/74 Pulse Oximetry Oxygen Delivery 05/05/25 19:00 05/05/25 19:01 05/05/25 20:00 Temperature 97.6 F Pulse Rate 86 Respiratory Rate 18 Blood Pressure 121/72 Pulse Oximetry Oxygen Delivery Room Air 05/05/25 20:01 05/05/25 21:00 05/05/25 21:01 Temperature 98 F Pulse Rate 78 72 Respiratory Rate 16 Blood Pressure 114/66 125/61 Pulse Oximetry Oxygen Delivery 05/05/25 22:01 05/05/25 23:00 05/05/25 23:03 Temperature 97.9 F Pulse Rate 89 75 Respiratory Rate 18 Blood Pressure 119/60 105/59 L Pulse Oximetry Oxygen Delivery 05/06/25 00:01 05/06/25 01:01 05/06/25 02:01 Temperature Pulse Rate 83 84 84 Respiratory Rate Blood Pressure 122/55 L 107/59 L 124/85 Pulse Oximetry Oxygen Delivery 05/06/25 03:00 05/06/25 03:01 05/06/25 04:01 Temperature 97.9 F Pulse Rate 65 64 Respiratory Rate 18 Blood Pressure 133/73 138/78 Pulse Oximetry Oxygen Delivery 05/06/25 05:01 05/06/25 06:00 05/06/25 06:01 Temperature 97.3 F L Pulse Rate 71 65 Respiratory Rate 18 Blood Pressure 123/81 109/72 Pulse Oximetry Oxygen Delivery 05/06/25 06:15 05/06/25 07:01 05/06/25 07:56 Temperature 97.4 F L Pulse Rate 101 H Respiratory Rate Blood Pressure 136/91 H Pulse Oximetry Oxygen Delivery Room Air 05/06/25 08:01 05/06/25 08:10 05/06/25 08:16 Temperature Pulse Rate 70 83 Respiratory Rate Blood Pressure 114/63 111/74 Pulse Oximetry 99 Oxygen Delivery 05/06/25 08:31 Temperature Pulse Rate 68 Respiratory Rate Blood Pressure 117/70 Pulse Oximetry Oxygen Delivery Exam Const: General: no acute distress Eyes: General: appearance normal, both eyes and all related structures Resp: Effort & Inspection: normal respiratory effort Cardio: Rate: regular rate GI: Other: Gravid no fundal tenderness no right upper quadrant pain Skin: General skin exam: no rashes or lesions noted Neuro: Cognition (Neuro): normal cognition Extrem: General: normal to inspection Psych: Mental Status: mental status grossly normal H&P: Results Labs Labs: Short CBC 05/05/25 Range/Units 17:55 WBC 8.9 (4.5-10.0) K/mm3 Hgb 12.1 (12.0-15.0) g/dL Hct 38.5 (37.0-47.0) % Plt Count 225 (150-375) k/mm3 Assessment and Plan Assessment and plan (1) Encounter for induction of labor: Code(s): Z34.90 - Encounter for supervision of normal , unspecified, unspecified trimester Status: Acute Assessment and Plan: Admit. Cytotec then Pitocin. (2) Gestational diabetes: Code(s): O24.419 - Gestational diabetes mellitus in , unspecified control Status: Acute Assessment and Plan: Diet controlled. Will monitor blood sugars in labor.
--- NOTE | 2025-05-06 08:42 | PM.OBPNVD ---
OB - PN: Subj Subjective Date/time seen: 05/06/25 08:42 Interval history: fht 150 cat 1, cont pitocin OB - PN: Obj Data Labs 05/05/25 17:55 Labs: Laboratory Results - last 24 hr 05/05/25 05/05/25 05/05/25 17:53 17:55 22:47 WBC 8.9 RBC 4.57 Hgb 12.1 Hct 38.5 MCV 84.2 MCH 26.5 MCHC 31.4 L RDW 14.0 Plt Count 225 MPV 12.0 H Immature Gran % (Auto) 0.8 H Neut % (Auto) 66.9 Lymph % (Auto) 23.4 [place] % (Auto) 7.9 Eos % (Auto) 0.4 Baso % (Auto) 0.6 Lymph # (Auto) 2.08 [place] # (Auto) 0.7 H Eos # (Auto) 0.0 Baso # (Auto) 0.1 Abs Immat Gran (auto) 0.07 H Absolute Neuts (auto) 6.0 Absolute Nucleated RBC 0.000 Nucleated RBC % 0.0 POC Capillary Glucose 126 H 148 H Syphilis IgG/IgM Ab Non-reactive Blood Type O Positive Antibody Screen Negative 05/06/25 05:25 WBC RBC Hgb Hct MCV MCH MCHC RDW Plt Count MPV Immature Gran % (Auto) Neut % (Auto) Lymph % (Auto) [place] % (Auto) Eos % (Auto) Baso % (Auto) Lymph # (Auto) [place] # (Auto) Eos # (Auto) Baso # (Auto) Abs Immat Gran (auto) Absolute Neuts (auto) Absolute Nucleated RBC Nucleated RBC % POC Capillary Glucose 95 Syphilis IgG/IgM Ab Blood Type Antibody Screen OB - PN A/P Time Spent With Patient Time: Total time spent is greater than 50% in coordination of care (as documented) at patient's floor/unit and/or counseling patient:
[2025-05-06] MEDS: SODIUM CHLORIDE 0.9% IV 1,000 ML 125 ML IV CONT (10:00)
--- NOTE | 2025-05-06 17:52 | S_PTH ---
PATIENT: Guillermo Varela LOC: [facility] U#:[id number] AGE/SX: 29/F ROOM: 285 RE05/05/[address]: Raymon Garcia MD : 1995 BED: 00 DIS: 05/08/2025 SPEC #: [id number] RECD: 05/09/25 08:43 STATUS: EULALIA REQ #: [id number] ANDREY: 05/06/25 17:[address]: Raymon Garcia DEPT: [facility] Surgical RECD BY: Farzana Ocasio ENTERED: 05/09/25 08:43 SP TYPE: Surgical OTHR DR: Vignesh Mei Jr., SHANK SKINNER UNKNOWN,DOCTOR Tissues: A - Placenta Procedures: Hematoxylin and Eosin Stain Gross and Microscopic Level 5
--- NOTE | 2025-05-06 17:58 | PM.OBPNLAB ---
Pain Control Date/time seen: 05/06/25 1430 Comments: Cat 1, AROM, cervix /-2 light mec, continue pitocin.
--- NOTE | 2025-05-06 17:58 | PM.OBPRVD ---
OB - Vaginal Delivery Note Procedure Delivery date: 05/07/25 Events: Gestational Diabetes Induction method: Per Misoprostol Protocol Delivery augmentation: Rupture of Membranes and Pitocin Delivery monitor: External FHT Route of delivery: Episiotomy description: None Laceration Description: None Specimen: No Quantitative Blood Loss (ml): 150 Anesthesia type: Epidural Disposition: Floor Complications: No immediate complications Baby Date of : 05/06/25 Time of : 17:48 Gestational Age by Date: 39 Infant gender: Female Weight (pounds): 7 Weight (ounces): 2 presentation: vertex position: Right Occiput Anterior Placenta delivery description: Spontaneous Cord Vessel Description: 3 Vessels, Loose and Reduced (manually)
--- NOTE | 2025-05-06 18:00 | P.DS_ITS ---
DS: Admitting Diagnosis Discharge Date 05/07/25 Admitting Diagnosis Induction of labor DS: Discharge Diagnosis Discharge Diagnosis (1) Vaginal delivery: Code(s): O80 - Encounter for full-term uncomplicated delivery Status: Acute OB - DS: Summary Hospital Course Hospital Course: She was admitted for [facility]. She had an uncomplicated vaginal delivery. She did well . Requested discharge to home on day 1 if baby allowed discharge. OB Procedures : NST and Ultrasound OB Procedures Intrapartum: Spontaneous Vag Delivery OB Procedures: : None Peripartum Data Infant Delivery Method: Natural Vaginal Laceration Description: None Episiotomy description: None complications: none Status at Discharge Functional status at discharge: independent ambulation Time Spent with Patient Time attestation: Total time spent providing and/or coordinating discharge services: Exam Const: General: cooperative Orientation/consciousness: oriented to person, oriented to place and oriented to time HENMT: Face/Nose/Sinus: Normal external nose present Eyes: General: appearance normal, both eyes and all related structures Resp: Effort & Inspection: normal respiratory effort GI: Inspection: normal to inspection Skin: General skin exam: normal color Neuro: General: oriented to person, oriented to place and oriented to time Extrem: General: normal to inspection and no calf tenderness Psych: Appearance: grossly normal Mental Status: mental status grossly normal DS: Data Data Completed and Pending Labs on day of discharge: Labs from last 24 hours 05/06/25 05/06/25 05/06/25 17:04 14:05 11:06 WBC RBC Hgb Hct MCV MCH MCHC RDW Plt Count MPV Immature Gran % (Auto) Neut % (Auto) Lymph % (Auto) [place] % (Auto) Eos % (Auto) Baso % (Auto) Lymph # (Auto) [place] # (Auto) Eos # (Auto) Baso # (Auto) Abs Immat Gran (auto) Absolute Neuts (auto) Absolute Nucleated RBC Nucleated RBC % POC Capillary Glucose 70 70 120 H Syphilis IgG/IgM Ab Blood Type Antibody Screen 05/06/25 05/06/25 05/05/25 09:53 05:25 22:47 WBC RBC Hgb Hct MCV MCH MCHC RDW Plt Count MPV Immature Gran % (Auto) Neut % (Auto) Lymph % (Auto) [place] % (Auto) Eos % (Auto) Baso % (Auto) Lymph # (Auto) [place] # (Auto) Eos # (Auto) Baso # (Auto) Abs Immat Gran (auto) Absolute Neuts (auto) Absolute Nucleated RBC Nucleated RBC % POC Capillary Glucose 158 H 95 148 H Syphilis IgG/IgM Ab Blood Type Antibody Screen 05/05/25 17:55 WBC 8.9 RBC 4.57 Hgb 12.1 Hct 38.5 MCV 84.2 MCH 26.5 MCHC 31.4 L RDW 14.0 Plt Count 225 MPV 12.0 H Immature Gran % (Auto) 0.8 H Neut % (Auto) 66.9 Lymph % (Auto) 23.4 [place] % (Auto) 7.9 Eos % (Auto) 0.4 Baso % (Auto) 0.6 Lymph # (Auto) 2.08 [place] # (Auto) 0.7 H Eos # (Auto) 0.0 Baso # (Auto) 0.1 Abs Immat Gran (auto) 0.07 H Absolute Neuts (auto) 6.0 Absolute Nucleated RBC 0.000 Nucleated RBC % 0.0 POC Capillary Glucose Syphilis IgG/IgM Ab Non-reactive Blood Type O Positive Antibody Screen Negative Discharge Plan Discharge Attending physician on discharge: Raymon Garcia Consulting providers: Vignesh Mei Jr. Discharging Clinician: Raymon Garcia Anticipated Discharge Date/Time: 05/07/25 18:00 Patient Disposition: Home Activity: may shower and pelvic rest Diet: regular Patient Instructions: Antibiotic Form Patient Language: Luxembourgish Stand Alone Forms: General Discharge Information Follow-up/Referrals: Raymon Garcia MD [Physician] - Call for Appointment (Follow up in 4-6 weeks) Discharge Medications: Continued ferrous sulfate 325 mg (65 mg iron) tablet,delayed release (DR/EC) 325 mg PO DAILY PNV [id number]-zmxzh gepn-hpozi-0 30 mg iron-10 mg iron-1 mg capsule 1 cap PO DAILY valacyclovir 500 mg tablet 500 mg PO DAILY PRN (Reason: hsv symptoms ) Patient Comments: as needed HSV triamcinolone acetonide 0.1 % cream 1 applic topical BID PRN (Reason: rash) Qty: 30 0RF Discontinued (DME) Dexcom G7 Sensor Device See Rx Instructions .ROUTE .MEDSUPPLY Qty: 3 0RF Rx Instructions: As directed (DME) blood-glucose meter [OneTouch Verio Flex meter] Misc See Rx Instructions .ROUTE .MEDSUPPLY Qty: 1 0RF Rx Instructions: As directed (DME) lancets 33 gauge misc See Rx Instructions .ROUTE .MEDSUPPLY Qty: 100 3RF Rx Instructions: QID: fasting and 1 hr after breakfast, lunch, and dinner. (DME) OneTouch Verio test strips Strip See Rx Instructions .ROUTE .MEDSUPPLY Qty: 100 3RF Rx Instructions: QID: fasting and 1 hr after breakfast, lunch, and dinner. Date of admission: 05/05/25 17:25 Primary Care Provider: UNKNOWN,DOCTOR Admitting Provider: Raymon Garcia Attending physician on admission: Raymon Garcia Condition: Stable
[2025-05-06] MEDS: OXYTOCIN 30 UNITS/NS 500 ML 30 UNITS/500 ML BAG 125 UNITS IV CONT (18:24)
[2025-05-06] MEDS: IBUPROFEN 600 MG TABLET PO (20:44)
[2025-05-07 03:00] VITALS: BP 93/50; PULSE 85; RESP 15; TEMP 36.2; O2SAT 100
[2025-05-07 05:57] LABS: Hematocrit 36.0 % (37.0-47.0); Hemoglobin 10.9 g/dL (12.0-15.0)
[2025-05-07 08:22] VITALS: BP 118/70; PULSE 75; RESP 18; TEMP 36.3; O2SAT 98
[2025-05-07] MEDS: MULTIVIT/MIN/PREN/FOL AC/IRON TABLET 1 TAB PO (09:40)
--- NOTE | 2025-05-07 10:05 | WPDANLDPN2 ---
Anes-Prog Note L&D Date/Time: 05/07/25 10:05 Comfortable throughout: labor and delivery Neuraxial method: epidural Epidural/Spinal procedure site: clean & non-tender Neuro status: Neuro function grossly intact. Cardiovascular status: normal Respiratory status: normal Airway patency: baseline Mental status: baseline Post-Op hydration status: normal Vital Signs: Last Vital Signs Temp 97.3 F L 05/07/25 08:22 Pulse 75 05/07/25 08:22 Resp 18 05/07/25 08:22 BP 118/70 05/07/25 08:22 Pulse Ox 98 05/07/25 08:22 O2 Del Method Room Air 05/06/25 07:56 Pain score (VAS): 0 I/O: Intake & Output 05/06/25 05/07/25 05/07/25 23:59 07:59 15:59 Intake Total 1120.3 500 Output Total 100 Balance 1020.3 500 Post-procedural complaints: none Patient feedback: Patient satisfied with anesthetic care.
[2025-05-07 12:21] VITALS: BP 115/69; PULSE 84; RESP 18; TEMP 36.3; O2SAT 99
--- NOTE | 2025-05-07 16:02 | PC.NURSE ---
Mother verbalizes she is able to independently latch with appropriate positioning and alignment. She denies any nipple discomfort and is responsively . Infant is currently meeting outcomes for weight, output, jaundice, blood sugar and feeding frequencies of 8-12 times in 24 hours. Mother declines any additional assistance or education at this time. Mother is encouraged to call for assistance if her infant doesn?t latch, pain with latching, questions or concerns. Mother voiced understanding of information shared along with the mom/baby guide for an additional resource. Reported to the Primary RN.
[2025-05-07 19:45] VITALS: BP 124/77; PULSE 81; RESP 18; TEMP 36.5
--- NOTE | 2025-05-08 06:46 | P.PNOB_ITS ---
OB - PN: Subj Subjective Date/time seen: 05/08/25 06:46 Interval history: fht 150 cat 1, cont pitocin Patient comments: pain well controlled, tolerating diet and other (Decreasing lochia.) baby status: doing well and nursing well OB - PN: Obj Data Labs 05/07/25 04:36 OB - PN A/P Plan day: 2 Plan: discharge home and other Comments: Patient doing well. Follow up 4-6 weeks. Discharge instructions provided. Time Spent With Patient Time: Total time spent is greater than 50% in coordination of care (as documented) at patient's floor/unit and/or counseling patient: Time with patient: less than 15 minutes Exam 2 Psych: Affect: normal affect Other: Abd: fundus firm below umbilicus, nontender Ext: nontender
[2025-05-08 08:00] VITALS: BP 110/68; PULSE 93; RESP 18; TEMP 36.6; O2SAT 100
[2025-05-08] MEDS: TETANUS,DIPHTHERIA,AC PERTUSSIS ADULT (0.5 ML) BOOSTRIX IM (08:20)
[2025-05-08] MEDS: MULTIVIT/MIN/PREN/FOL AC/IRON TABLET 1 TAB PO (08:22)
--- NOTE | 2025-05-08 12:03 | PC.NURSE ---
Patient viewed the discharge video Mother & Baby Care, The First Two Weeks. Patient was given the opportunity and encouraged to ask questions. Patient verbalized understanding of information shared and has been given the mother/baby guide for home reference.
[2025-05-09 09:31] VITALS: BP 118/69; PULSE 100; RESP 18; TEMP 37.5; O2SAT 100
== END 2025-05-08 10:50 | disposition home or self-care (01) | DRG 807 ==
LOC: ANHLDR 17:32 → ANHOB2 05-06 22:24
PROVIDERS: Admitting Provider Obstetrics & Gynecology; Visit Provider Obstetrics & Gynecology
DX: O24.420 Gestational diabetes mellitus in childbirth, diet controlled (principal); Z37.0 Single live birth; Z3A.39 39 weeks gestation of pregnancy; O77.0 Labor and delivery complicated by meconium in amniotic fluid; O69.81X0 Labor and delivery complicated by cord around neck, without compression, not applicable or unspecified
CPT/HCPCS: 36415; 82948; 85014; 85018; 85025; 86593; 86850; 86900; 86901; 88307; 90715; A9270; J2590; J2795; J7030; J7120

== ENCOUNTER 2025-07-05 10:25 | Outpatient (CLI) | payer OTHER, SELFPAY ==
--- OUTSIDE RECORDS SUMMARY | 2025-07-05 12:11 | XMS_ITS | Clinical Summary ---
Author Organization [facility] Address [address] [place] [address] Phone Care Team Providers Care Freezer Tunnel Operator Name Role Phone Unavailable Primary Care Provider Unavailabl e Encounters Date Type Department Care Team Description 06/21/2025 External Device Data [facility] ABSTRACTION Provider, Abstract 04/27/2025 External Device Data [facility] ABSTRACTION Provider, [...] 19+ 3-dose series) 05/24 HPV/Cotest (21-29) 2014 HPV VACCINES (1 - 3-dose SCDM series) 2020 CERVICAL CANCER SCREENING 2023 HPV/Cotest (30-65) 2023 PAP SMEAR 2023 INFLUENZA VACCINE (#1) 2025 Insurance [place] [employer] [facility] Address: [facility] [address] [place] [address]
--- OUTSIDE RECORDS SUMMARY | 2025-07-05 12:11 | XMS_ITS | Clinical Summary ---
Author Organization [facility] Address [facility] [place] [address] Care Team Providers Care Cotton Ginner Name Role Phone None, Provider MD Primary [...] on file Legal Sex Female 10:03 PM SPECIAL NEEDS NANNY Gender Identity Not on file Sexual Orientation [...] HPV 2023 COVID-19 Vaccine (2023-2 5 season) 2025 Influenza Adult (#1) 2025 Meningococcal B Vaccine Aged Out No l [...] patient's age to complete this [place] [address] [employer] Care Teams Cotton Ginner Relationship Specialty Start Date End Date None, Provider, PCP - General 01/24/20
[2025-07-05 12:42] LABS: Glucose 2 Hour 137 mg/dL
[2025-07-05 14:00] LABS: Glucose 1 Hour 94 mg/dL
== END 2025-07-05 10:26 | disposition home or self-care (01) ==
LOC: ANHLAB 10:27
PROVIDERS: Visit Provider Obstetrics & Gynecology
DX: O24.419 Gestational diabetes mellitus in pregnancy, unspecified control (principal); Z3A.00 Weeks of gestation of pregnancy not specified
CPT/HCPCS: 36415; 82951